=== PATIENT | male | born 1940 ===

== ENCOUNTER 2016-10-11 20:28 | Inpatient (IN) | payer MEDICARE ==
[2016-10-11 20:29] VITALS: PULSE 76; BMI 24.3
[2016-10-11 21:31] LABS: BASO # 0.1 K/uL (0.0-0.2); BASO % 0.7 % (0.0-2.0); EOS # 0.3 K/uL (0.0-0.7); EOS % 2.6 % (0.0-4.0); HEMATOCRIT 45.9 % (35.0-51.0); LYMPH # 0.6 K/uL (1.0-4.3); LYMPH % 5.6 % (20.0-40.0); MEAN CELL VOLUME 90.2 fL (80.0-94.0); MEAN CORPUSCULAR HEMOGLOBIN 29.2 pg (27.0-31.0); MEAN CORPUSCULAR HGB CONC 32.3 g/dL (33.0-37.0); MEAN PLATELET VOLUME 8.4 fL (7.2-11.7); MONO % 8.8 % (0.0-10.0); PLATELET COUNT 169 K/uL (130-400); RED CELL DISTRIBUTION WIDTH 15.7 % (11.5-14.5); WHITE BLOOD COUNT 10.9 K/uL (4.8-10.8)
[2016-10-11 21:33] LABS: RBC URINE 1 /hpf (0-3); URINE BILIRUBIN NEGATIVE (NEGATIVE); URINE BLOOD NEGATIVE (NEGATIVE); URINE COLOR Yellow (YELLOW); URINE GLUCOSE (UA) NORMAL (Normal); URINE KETONE NEGATIVE (NEGATIVE); URINE LEUKOCYTE ESTERASE NEG Leu/uL (Negative); URINE PROTEIN 2+ mg/dL (NEGATIVE); URINE UROBILINOGEN NORMAL mg/dL (0.2-1.0); WBC URINE < 1 /hpf (0-5)
[2016-10-11 21:42] LABS: ALB/GLOB RATIO 1.6 (1.0-2.1); BILIRUBIN,TOTAL 0.8 mg/dL (0.2-1.3); PHOSPHOROUS 3.4 mg/dL (2.5-4.5); TOTAL PROTEIN 7.3 g/dL (6.3-8.3)
[2016-10-11 21:43] LABS: CALCIUM 9.2 mg/dl (8.6-10.4); MAGNESIUM 2.1 mg/dL (1.6-2.3)
[2016-10-11 22:01] LABS: VENOUS BLOOD GAS BASE EXCESS -4.8 mmol/L (0.0-2.0); VENOUS BLOOD GAS PCO2 38 mmHg (40-60); VENOUS BLOOD PH 7.34 (7.32-7.43)
[2016-10-11] MEDS ORDERED: Moxifloxacin IV 400mg/250ml NS 250 ML IVPB STA (22:34)
[2016-10-11 22:41] LABS: EOSINOPHIL 4 % (0-4); NEUTROPHIL 79 % (50-75); TOTAL CELLS COUNTED 100
[2016-10-11 22:42] LABS: LARGE PLATELETS PRESENT
[2016-10-11] MEDS ORDERED: Moxifloxacin IV 400mg/250ml NS 250 ML IVPB ONE (22:43)
--- NOTE | 2016-10-11 22:48 | C.PDOC ---
History Of Present Illness Pt states he had chemotherapy at Dr. Valentin's office today. He then developed fever after returning home. Time Seen by Provider: 10/11/16 20:51 Chief Complaint (Nursing): Fever History Per: Patient Onset/Duration Of Symptoms: Hrs (since this afternoon) Current Symptoms Are (Timing): Still Present Associated Symptoms: Fever, Chills, Sore Throat, Cough, Nasal Congestion Severity: Moderate Additional History Per: Prior Records Past Medical History Reviewed: Historical Data, Nursing Documentation, Vital Signs Vital Signs: Last Vital Signs Temp 102.9 F H 10/11/16 22:27 Pulse 110 H 10/11/16 22:14 Resp 20 10/11/16 22:14 BP 197/96 H 10/11/16 22:14 Pulse Ox 95 10/11/16 22:14 - Medical History PMH: Anemia, Arthritis (Spine), Atrial Fibrillation, CAD, Cardia Arrhythmia, CHF , COPD, Gastrointestinal Ulcer, HTN, Hypercholesterolemia, Hyperlipidemia, Malignancy (Larynx and Vocal Cords), Pneumonia, Chronic Kidney Disease Surgical History: Endoscopy, Pacemaker - [facility] Procedures ANGIOPLASTY OF OTHER NON-CORONARY VESSEL(S) (02/13/14) CLOSED ENDOSCOPIC BIOPSY OF LARGE INTESTINE (09/08/14) CONTINUOUS INVASIVE MECHANICAL VENTILATION <96 CONSEC HRS (03/06/15) CONTRAST ARTERIOGRAM-LEG (02/13/14) DX ULTRASOUND-HEART (08/24/13) ENDOSC POLYPECTOMY OF LG INTEST (03/03/13) ESOPHAGOGASTRODUODENOSCOPY [EGD] W/CLOSED BIOPSY (09/08/14) EXCISION OF DESCENDING COLON, ENDO, DIAGN (04/05/15) EXCISION OF STOMACH, ENDO, DIAGN (04/05/15) FUSION/REFUS OF 4-8 VERTEBRAE (05/02/13) INFLUENZA VACCINATION (05/26/14) INSEJ [id number] PERIPHERAL NON-CORONARY VES STENT(S) (02/13/14) INSERT ENDOTRACHEAL TUBE (03/06/15) INSERTION OF FOUR OR MORE VASCULAR STENTS (02/13/14) INSERTION OF TOTALLY IMPLANTABLE VASC ACCESS DEVIC (09/29/14) INSPECTION OF UPPER INTESTINAL TRACT, ENDO (04/05/15) OCCUPATIONAL THERAPY (03/13/13) OTH CERVICAL FUSION OF POSTERIOR COLUMN, POSTERIOR TECHNIQUE (05/02/13) OTHER ENDOSCOPY OF SM INTEST (03/03/13) PACKED CELL TRANSFUSION (03/06/15) PHYSICAL THERAPY NEC (03/13/13) PROCEDURE ON SINGLE VESSEL (02/13/14) RADIOTHERAPEUT PROC NEC (03/13/13) SPINAL CANAL EXPLOR NEC (05/02/13) THERAPEUTIC ERYTHROCYTAPHERESIS (08/19/14) TRANSFUSE NONAUT RED BLOOD CELLS IN PERIPH VEIN, PERC (04/05/15) ULTRASONOGRAPHY OF RIGHT AND LEFT HEART, TRANSESOPHAGEAL (11/09/15) VACCINATION NEC (05/26/14) Family History: States: Unknown Family Hx - Social History Hx Tobacco Use: No Hx Alcohol Use: No Hx Substance Use: No - Immunization History Hx Tetanus Toxoid Vaccination: No Hx Influenza Vaccination: No Hx Pneumococcal Vaccination: No Review Of Systems Except As Marked, All Systems Reviewed And Found Negative. Constitutional: Positive for: Fever, Chills, Malaise Cardiovascular: Negative for: Chest Pain Respiratory: Positive for: Cough. Negative for: Shortness of Breath, Hemoptysis Gastrointestinal: Negative for: Vomiting, Abdominal Pain, Diarrhea Genitourinary: Negative for: Dysuria Musculoskeletal: Negative for: Neck Pain Skin: Negative for: Rash Neurological: Negative for: Weakness, Numbness, Seizures, Altered Mental Status , Headache Physical Exam - Physical Exam Appears: Chronically Ill Skin: Normal Color, Warm, Dry, No Rash Head: Atraumatic, Normacephalic Eye(s): bilateral: PERRL, EOMI Throat: Erythema, No Exudate, No Drooling Neck: Normal ROM, Supple Cardiovascular: Rhythm Regular Respiratory: No Accessory Muscle Use, Rhonchi Gastrointestinal/Abdominal: Soft, No Tenderness Back: No CVA Tenderness Extremity: Normal ROM, No Pedal Edema, No Calf Tenderness Neurological/Psych: Oriented x3, Normal Cognition, Normal Motor, Normal Sensation ED Course And Treatment - Laboratory Results Result Diagrams: 10/11/16 21:24 10/11/16 21:24 Lab Interpretation: Abnormal Interpretation Of Abnormal: Left shift. Renal insufficiency. ECG: Interpreted By Me, Viewed By Me ECG Rhythm: Atrial Fibrillation, PVC, Nonspecific Changes ECG Interpretation: Abnormal Rate From EC O2 Sat by Pulse Oximetry: 95 Pulse Ox Interpretation: Normal - Radiology CXR: Interpreted by Me, Viewed By Me CXR Interpretation: Yes: Infiltrates, Other ([place] and Pacemaker in place) Progress - Interventions Interventions:: Observation, Oxygen - Medications Administered Oral: Acetaminophen Intravenous: Other (Abx) - Data Reviewed Data Reviewed: Lab, Diagnostic imaging, EKG, Old records - Patient Status Patient status: Partially improved - Continuity of Care Discussed patient case with:: Patient, ED Nurse, PMD - Patient Plan Patient Plan: Admission Disposition Discussed With : Hebert Dorado Comment: He accepted pt on his service and gave admitting orders to the nurse. Doctor Will See Patient In The: Hospital Counseled Patient/Family Regarding: Studies Performed, Diagnosis - Disposition Disposition: HOSPITALIZED Disposition Time: 22:49 Condition: GUARDED - Clinical Impression Clinical Impression: Fever, Renal insufficiency, Pneumonia, A-fib, On antineoplastic chemotherapy
[2016-10-11] MEDS: Moxifloxacin IV 400mg/250ml NS 250 ML IVPB SCH (23:19)
[2016-10-12 00:20] LABS: VENOUS BLOOD GAS PCO2 24 mmHg (40-60)
[2016-10-12 06:52] LABS: BASO # 0.1 K/uL (0.0-0.2); BASO % 0.6 % (0.0-2.0); EOS # 0.2 K/uL (0.0-0.7); HEMATOCRIT 35.8 % (35.0-51.0); LYMPH # 0.5 K/uL (1.0-4.3); LYMPH % 5.4 % (20.0-40.0); MEAN CELL VOLUME 88.3 fL (80.0-94.0); MEAN CORPUSCULAR HEMOGLOBIN 29.5 pg (27.0-31.0); MEAN CORPUSCULAR HGB CONC 33.4 g/dL (33.0-37.0); MEAN PLATELET VOLUME 8.5 fL (7.2-11.7); MONO # 1.3 K/uL (0.0-0.8); MONO % 13.9 % (0.0-10.0); NRBC % 0.1 % (0.0-2.0); PLATELET COUNT 139 K/uL (130-400); RED CELL DISTRIBUTION WIDTH 15.4 % (11.5-14.5); WHITE BLOOD COUNT 9.6 K/uL (4.8-10.8)
[2016-10-12 07:04] LABS: POTASSIUM 4.8 mmol/L (3.6-5.2)
[2016-10-12 07:06] LABS: ALB/GLOB RATIO 1.5 (1.0-2.1); BILIRUBIN,TOTAL 0.8 mg/dL (0.2-1.3); CALCIUM 8.4 mg/dl (8.6-10.4); TOTAL PROTEIN 5.5 g/dL (6.3-8.3)
--- NOTE | 2016-10-12 08:42 | RAD ---
HISTORY: Sepsis Patient COMPARISON: 01/29/2016 FINDINGS: LUNGS: Right chest wall port with tip extending into the right SVC. Left-sided pacemaker. Mild venous congestion. Biapical pleural thickening with upper lobe granulomatous changes. Patchy bibasilar airspace opacities. Small nodular density at the right lung base. Left hilar prominence. PLEURA: As above. CARDIOVASCULAR: Left-sided pacemaker. Mild cardiomegaly. OSSEOUS STRUCTURES: No significant abnormalities. VISUALIZED UPPER ABDOMEN: Normal. OTHER FINDINGS: None. IMPRESSION: Right chest wall port with tip extending into the right SVC. Left-sided pacemaker. Mild venous congestion. Biapical pleural thickening with upper lobe granulomatous changes. Patchy bibasilar airspace opacities. Small nodular density at the right lung base. Left hilar prominence.
[2016-10-12 08:52] LABS: EOSINOPHIL 4 % (0-4); NEUTROPHIL 78 % (50-75); TOTAL CELLS COUNTED 100
[2016-10-12] MEDS: Enoxaparin 40 mg Syringe SC SCH (10:45)
[2016-10-12] MEDS: Pantoprazole 40 mg EC Tab PO SCH (10:45)
[2016-10-12] MEDS: Linezolid 600 mg in D5W 300 ml 300 ML IVPB SCH ×2 (10:51→21:16)
--- NOTE | 2016-10-12 16:57 | CP.PCM.CON ---
Past Patient History - Infectious Disease Hx of Infectious Diseases: None - Tetanus Immunizations Tetanus Immunization: Unknown - Past Medical History & Family History Past Medical History?: Yes - Past Social History Smoking Status: Former Smoker - CARDIAC Hx Atrial Fibrillation: Yes Hx Cardia Arrhythmia: Yes Hx Congestive Heart Failure: Yes Hx Hypercholesterolemia: Yes Hx Hypertension: Yes Hx Pacemaker: Yes - PULMONARY Hx Chronic Obstructive Pulmonary Disease (COPD): No Hx Pneumonia: No - NEUROLOGICAL Hx Neurological Disorder: No - HEENT Hx HEENT Problems: Yes Hx Epistaxis: Yes Other/Comment: HX VOCAL CORD tumor REMOVED MAR 2013 - RENAL Hx Chronic Kidney Disease: Yes - ENDOCRINE/METABOLIC Hx Endocrine Disorders: No - HEMATOLOGICAL/ONCOLOGICAL Hx Anemia: Yes - INTEGUMENTARY Hx Dermatological Problems: No - MUSCULOSKELETAL/RHEUMATOLOGICAL Hx Musculoskeletal Disorders: Yes Hx Arthritis: No Hx Falls: No Hx Gout: Yes - GASTROINTESTINAL Hx Gastrointestinal Disorders: Yes Hx Bowel Surgery: No Hx Constipation: No - GENITOURINARY/GYNECOLOGICAL Hx Genitourinary Disorders: No - PSYCHIATRIC Hx Substance Use: No - SURGICAL HISTORY Hx Surgeries: Yes 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 LARYNGOSCOPY REMOVAL VOCAL CORD TUMOR - ANESTHESIA Hx Anesthesia: Yes Hx Anesthesia Reactions: No Hx Malignant Hyperthermia: No Meds Allergies/Adverse Reactions: Allergies Allergy/AdvReac Type Severity Reaction Status Date / Time Penicillins Allergy RASH Verified 10/11/16 20:42 - Medications Medications: Current Medications Acetaminophen (Tylenol 325mg Tab) 975 mg PO Q4 PRN PRN Reason: Fever >100.4 F Amlodipine Besylate (Norvasc) 10 mg PO [facility]ILY [facility] Aspirin (Aspirin Chewable) 81 mg PO DAILY [facility] Carvedilol (Coreg) 6.25 mg PO BID [facility] Enoxaparin Sodium (Lovenox) 40 mg SC DAILY [facility] Last Admin: 10/12/16 10:45 Dose: 40 mg Gabapentin (Neurontin) 300 mg PO BID [facility] Hydralazine HCl (Apresoline) 50 mg PO BID [facility] Moxifloxacin HCl (Avelox Iv 400mg/250ml Ns) 250 mls @ 167 mls/hr IVPB Q24H [facility] Last Admin: 10/11/16 23:19 Dose: Not Given Linezolid (Zyvox 600mg/300ml D5w) 300 mls @ 200 mls/hr IVPB Q12 [facility] Last Admin: 10/12/16 10:51 Dose: 200 mls/hr Pantoprazole Sodium (Protonix Ec Tab) 40 mg PO DAILY [facility] Last Admin: 10/12/16 10:45 Dose: 40 mg Results - Vital Signs Recent Vital Signs: Last Vital Signs Temp 98.2 F 10/12/16 08:00 Pulse 71 10/12/16 08:00 Resp 18 10/12/16 08:00 BP 165/62 H 10/12/16 08:00 Pulse Ox 96 10/12/16 08:00 - Labs Result Diagrams: 10/12/16 06:43 10/12/16 06:43 Labs: Laboratory Results - last 24 hr 10/12/16 10/12/16 00:10 06:43 WBC 9.6 RBC 4.06 L Hgb 12.0 D Hct 35.8 MCV 88.3 MCH 29.5 MCHC 33.4 RDW 15.4 H Plt Count 139 MPV 8.5 Neut % (Auto) 78.1 H Lymph % (Auto) 5.4 L [place] % (Auto) 13.9 H Eos % (Auto) 2.0 Baso % (Auto) 0.6 Neut # 7.5 H Lymph # 0.5 L [place] # 1.3 H Eos # 0.2 Baso # 0.1 Neutrophils % (Manual) 78 H Lymphocytes % (Manual) 8 L Monocytes % (Manual) 10 Eosinophils % (Manual) 4 Platelet Estimate Normal RBC Morphology Normal pO2 49 VBG pH 7.40 VBG pCO2 24 L VBG HCO3 18.3 VBG Total CO2 15.6 L VBG O2 Sat (Calc) 92.0 H VBG Base Excess -8.0 L VBG Potassium 3.8 Sodium 141.0 139 Chloride 123.0 H 110 H Glucose 59 L Lactate 1.6 Potassium 4.8 Carbon Dioxide 18 L Anion Gap 16 BUN 38 H Creatinine 2.3 H Est GFR ( Amer) 34 Est GFR (Non-Af Amer) 28 Random Glucose 72 L Calcium 8.4 L Total Bilirubin 0.8 AST 25 ALT 19 L Alkaline Phosphatase 91 Total Protein 5.5 L Albumin 3.3 L D Globulin 2.2 Albumin/Globulin Ratio 1.5 Venous Blood Potassium 3.8
[2016-10-12 17:16] VITALS: RESP 20
--- NOTE | 2016-10-12 18:58 | CP.PCM.HP ---
History of Present Illness - History of Present Illness History of Present Illness: 76-year-old male patient with the past medical history of atrial fibrillation, CAD, cardiac arrhythmia, CHF, COPD, gastrointestinal ulcer, hypertension, hypercholesterolemia, hyperlipidemia, malignancy(larynx and vocal cord), pneumonia, chronic kidney disease presented to the ER after developing a fever. Patient had chemotherapy at Dr. Valentin's office today. Patient then developed fever after returning home. Present on Admission - Present on Admission Any Indicators Present on Admission: No Past Patient History - Infectious Disease Hx of Infectious Diseases: None - Tetanus Immunizations Tetanus Immunization: Unknown - Past Medical History & Family History Past Medical History?: Yes - Past Social History Smoking Status: Former Smoker - CARDIAC Hx Atrial Fibrillation: Yes Hx Cardia Arrhythmia: Yes Hx Congestive Heart Failure: Yes Hx Hypercholesterolemia: Yes Hx Hypertension: Yes Hx Pacemaker: Yes - PULMONARY Hx Chronic Obstructive Pulmonary Disease (COPD): No Hx Pneumonia: No - NEUROLOGICAL Hx Neurological Disorder: No - HEENT Hx HEENT Problems: Yes Hx Epistaxis: Yes Other/Comment: HX VOCAL CORD tumor REMOVED MAR 2013 - RENAL Hx Chronic Kidney Disease: Yes - ENDOCRINE/METABOLIC Hx Endocrine Disorders: No - HEMATOLOGICAL/ONCOLOGICAL Hx Anemia: Yes - INTEGUMENTARY Hx Dermatological Problems: No - MUSCULOSKELETAL/RHEUMATOLOGICAL Hx Musculoskeletal Disorders: Yes Hx Arthritis: No Hx Falls: No Hx Gout: Yes - GASTROINTESTINAL Hx Gastrointestinal Disorders: Yes Hx Bowel Surgery: No Hx Constipation: No - GENITOURINARY/GYNECOLOGICAL Hx Genitourinary Disorders: No - PSYCHIATRIC Hx Substance Use: No - SURGICAL HISTORY Hx Surgeries: Yes 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 LARYNGOSCOPY REMOVAL VOCAL CORD TUMOR - ANESTHESIA Hx Anesthesia: Yes Hx Anesthesia Reactions: No Hx Malignant Hyperthermia: No Meds Home Medications: Home Medication List Medication Instructions Recorded Confirmed Type Moxifloxacin [Avelox] 400 mg PO DAILY #5 tab 10/14/16 Rx Allergies/Adverse Reactions: Allergies Allergy/AdvReac Type Severity Reaction Status Date / Time Penicillins Allergy RASH Verified 10/11/16 20:42 Physical Exam - Constitutional Appears: Well - Head Exam Head Exam: ATRAUMATIC, NORMAL INSPECTION, NORMOCEPHALIC - Eye Exam Eye Exam: EOMI, Normal appearance, PERRL Pupil Exam: NORMAL ACCOMODATION, PERRL - ENT Exam ENT Exam: Mucous Membranes Moist, Normal Exam - Neck Exam Neck exam: Positive for: Normal Inspection - Respiratory Exam Respiratory Exam: Decreased Breath Sounds - Cardiovascular Exam Cardiovascular Exam: REGULAR RHYTHM, +S1, +S2 - GI/Abdominal Exam GI & Abdominal Exam: Diminished Bowel Sounds, Soft - Rectal Exam Rectal Exam: Deferred Results - Vital Signs Recent Vital Signs: Last Vital Signs Temp 98.0 F 10/12/16 17:15 Pulse 81 10/12/16 17:15 Resp 20 10/12/16 17:15 BP 167/67 H 10/12/16 17:15 Pulse Ox 95 10/12/16 17:15 - Labs Result Diagrams: 10/14/16 06:21 10/14/16 06:21 Labs: Laboratory Results - last 24 hr 10/12/16 10/12/16 00:10 06:43 WBC 9.6 RBC 4.06 L Hgb 12.0 D Hct 35.8 MCV 88.3 MCH 29.5 MCHC 33.4 RDW 15.4 H Plt Count 139 MPV 8.5 Neut % (Auto) 78.1 H Lymph % (Auto) 5.4 L [place] % (Auto) 13.9 H Eos % (Auto) 2.0 Baso % (Auto) 0.6 Neut # 7.5 H Lymph # 0.5 L [place] # 1.3 H Eos # 0.2 Baso # 0.1 Neutrophils % (Manual) 78 H Lymphocytes % (Manual) 8 L Monocytes % (Manual) 10 Eosinophils % (Manual) 4 Platelet Estimate Normal RBC Morphology Normal pO2 49 VBG pH 7.40 VBG pCO2 24 L VBG HCO3 18.3 VBG Total CO2 15.6 L VBG O2 Sat (Calc) 92.0 H VBG Base Excess -8.0 L VBG Potassium 3.8 Sodium 141.0 139 Chloride 123.0 H 110 H Glucose 59 L Lactate 1.6 Potassium 4.8 Carbon Dioxide 18 L Anion Gap 16 BUN 38 H Creatinine 2.3 H Est GFR ( Amer) 34 Est GFR (Non-Af Amer) 28 Random Glucose 72 L Calcium 8.4 L Total Bilirubin 0.8 AST 25 ALT 19 L Alkaline Phosphatase 91 Total Protein 5.5 L Albumin 3.3 L D Globulin 2.2 Albumin/Globulin Ratio 1.5 Venous Blood Potassium 3.8 Assessment & Plan (1) A-fib Status: Acute (2) Abdominal pain Status: Acute (3) Abnormal EKG Status: Acute (4) Abnormal liver enzymes Status: Acute (5) Anemia Status: Acute (6) Aortic stenosis, moderate Status: Acute (7) Arthritis Status: Acute (8) 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 Status: Acute (9) Atherosclerotic PVD with ulceration Status: Acute Priority: Medium (10) Chest pain Status: Acute (11) Chronic congestive heart failure Status: Acute (12) Critical stenosis of aortic valve Status: Acute (13) Decubitus ulcer with gangrene Status: Acute (14) Defibrillator discharge Status: Acute (15) Dyspnea Status: Acute (16) Dyspnea on exertion Status: Acute (17) ESBL (extended spectrum beta-lactamase) producing bacteria infection Status: Acute (18) Elevated troponin Status: Acute (19) Elevated troponin I level Status: Acute (20) Epigastric pain Status: Acute (21) Fever Status: Acute (22) Flash pulmonary edema Status: Acute (23) GI bleeding Status: Acute (24) Gangrene Status: Acute (25) History of bowel resection Status: Acute (26) Hypernatremia Status: Acute (27) Hypocalcemia Status: Acute (28) Hypokalemia Status: Acute (29) Irregular cardiac rhythm Status: Acute (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 (31) On antineoplastic chemotherapy Status: Acute (32) Paraplegia Status: Acute (33) Pneumonia Status: Acute (34) Prophylactic measure Status: Acute (35) Proteus mirabilis pneumonia Status: Acute (36) Rapid atrial fibrillation Status: Acute (37) Renal insufficiency Status: Acute (38) Respiratory failure Status: Acute (39) Sciatica Status: Acute (40) Severe anemia Status: Acute (41) Sprain Status: Acute (42) UTI (urinary tract infection) Status: Acute (43) Waldenstroms macroglobulinemia Status: Acute (44) Weakness Status: Acute (45) Aortic stenosis Status: Chronic Priority: Low (46) CAD (coronary artery disease) Status: Chronic (47) COPD (chronic obstructive pulmonary disease) with emphysema Status: Chronic (48) Chronic kidney disease (CKD) Status: Chronic (49) Constipation Status: Chronic (50) HTN (hypertension) Status: Chronic (51) Hypercholesteremia Status: Chronic (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
--- NOTE | 2016-10-12 21:32 | CP.PCM.CON ---
History of Present Illness - History of Present Illness History of Present Illness: dictated Past Patient History - Infectious Disease Hx of Infectious Diseases: None - Tetanus Immunizations Tetanus Immunization: Unknown - Past Medical History & Family History Past Medical History?: Yes - Past Social History Smoking Status: Former Smoker - CARDIAC Hx Atrial Fibrillation: Yes Hx Cardia Arrhythmia: Yes Hx Congestive Heart Failure: Yes Hx Hypercholesterolemia: Yes Hx Hypertension: Yes Hx Pacemaker: Yes - PULMONARY Hx Chronic Obstructive Pulmonary Disease (COPD): No Hx Pneumonia: No - NEUROLOGICAL Hx Neurological Disorder: No - HEENT Hx HEENT Problems: Yes Hx Epistaxis: Yes Other/Comment: HX VOCAL CORD tumor REMOVED MAR 2013 - RENAL Hx Chronic Kidney Disease: Yes - ENDOCRINE/METABOLIC Hx Endocrine Disorders: No - HEMATOLOGICAL/ONCOLOGICAL Hx Anemia: Yes - INTEGUMENTARY Hx Dermatological Problems: No - MUSCULOSKELETAL/RHEUMATOLOGICAL Hx Musculoskeletal Disorders: Yes Hx Arthritis: No Hx Falls: No Hx Gout: Yes - GASTROINTESTINAL Hx Gastrointestinal Disorders: Yes Hx Bowel Surgery: No Hx Constipation: No - GENITOURINARY/GYNECOLOGICAL Hx Genitourinary Disorders: No - PSYCHIATRIC Hx Substance Use: No - SURGICAL HISTORY Hx Surgeries: Yes 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 LARYNGOSCOPY REMOVAL VOCAL CORD TUMOR - ANESTHESIA Hx Anesthesia: Yes Hx Anesthesia Reactions: No Hx Malignant Hyperthermia: No Meds Allergies/Adverse Reactions: Allergies Allergy/AdvReac Type Severity Reaction Status Date / Time Penicillins Allergy RASH Verified 10/11/16 20:42 - Medications Medications: Current Medications Acetaminophen (Tylenol 325mg Tab) 975 mg PO Q4 PRN PRN Reason: Fever >100.4 F Amlodipine Besylate (Norvasc) 10 mg PO DAILY [facility] Aspirin (Aspirin Chewable) 81 mg PO DAILY [facility] Carvedilol (Coreg) 6.25 mg PO BID [facility] Last Admin: 10/12/16 17:52 Dose: 6.25 mg Enoxaparin Sodium (Lovenox) 40 mg SC DAILY [facility] Last Admin: 10/12/16 10:45 Dose: 40 mg Gabapentin (Neurontin) 300 mg PO BID [facility] Last Admin: 10/12/16 17:52 Dose: 300 mg Hydralazine HCl (Apresoline) 50 mg PO BID [facility] Last Admin: 10/12/16 17:52 Dose: 50 mg Moxifloxacin HCl (Avelox Iv 400mg/250ml Ns) 250 mls @ 167 mls/hr IVPB Q24H [facility] Last Admin: 10/11/16 23:19 Dose: Not Given Linezolid (Zyvox 600mg/300ml D5w) 300 mls @ 200 mls/hr IVPB Q12 [facility] Last Admin: 10/12/16 21:16 Dose: 200 mls/hr Pantoprazole Sodium (Protonix Ec Tab) 40 mg PO DAILY [facility] Last Admin: 10/12/16 10:45 Dose: 40 mg Results - Vital Signs Recent Vital Signs: Last Vital Signs Temp 98.0 F 10/12/16 17:15 Pulse 81 10/12/16 17:15 Resp 20 10/12/16 17:15 BP 167/67 H 10/12/16 17:15 Pulse Ox 95 10/12/16 17:15 - Labs Result Diagrams: 10/12/16 06:43 10/12/16 06:43 Labs: Laboratory Results - last 24 hr 10/12/16 10/12/16 00:10 06:43 WBC 9.6 RBC 4.06 L Hgb 12.0 D Hct 35.8 MCV 88.3 MCH 29.5 MCHC 33.4 RDW 15.4 H Plt Count 139 MPV 8.5 Neut % (Auto) 78.1 H Lymph % (Auto) 5.4 L [place] % (Auto) 13.9 H Eos % (Auto) 2.0 Baso % (Auto) 0.6 Neut # 7.5 H Lymph # 0.5 L [place] # 1.3 H Eos # 0.2 Baso # 0.1 Neutrophils % (Manual) 78 H Lymphocytes % (Manual) 8 L Monocytes % (Manual) 10 Eosinophils % (Manual) 4 Platelet Estimate Normal RBC Morphology Normal pO2 49 VBG pH 7.40 VBG pCO2 24 L VBG HCO3 18.3 VBG Total CO2 15.6 L VBG O2 Sat (Calc) 92.0 H VBG Base Excess -8.0 L VBG Potassium 3.8 Sodium 141.0 139 Chloride 123.0 H 110 H Glucose 59 L Lactate 1.6 Potassium 4.8 Carbon Dioxide 18 L Anion Gap 16 BUN 38 H Creatinine 2.3 H Est GFR ( Amer) 34 Est GFR (Non-Af Amer) 28 Random Glucose 72 L Calcium 8.4 L Total Bilirubin 0.8 AST 25 ALT 19 L Alkaline Phosphatase 91 Total Protein 5.5 L Albumin 3.3 L D Globulin 2.2 Albumin/Globulin Ratio 1.5 Venous Blood Potassium 3.8 Assessment & Plan (1) Fever Status: Acute
--- NOTE | 2016-10-12 23:08 | CP.PCM.CON ---
History of Present Illness - History of Present Illness History of Present Illness: Patient seen and evaluated Denies chest pain and dyspnea Hx of Cardiomyopathy s/p AICD s/p TAVR Past Patient History - Infectious Disease Hx of Infectious Diseases: None - Tetanus Immunizations Tetanus Immunization: Unknown - Past Medical History & Family History Past Medical History?: Yes - Past Social History Smoking Status: Former Smoker - CARDIAC Hx Atrial Fibrillation: Yes Hx Cardia Arrhythmia: Yes Hx Congestive Heart Failure: Yes Hx Hypercholesterolemia: Yes Hx Hypertension: Yes Hx Pacemaker: Yes - PULMONARY Hx Chronic Obstructive Pulmonary Disease (COPD): No Hx Pneumonia: No - NEUROLOGICAL Hx Neurological Disorder: No - HEENT Hx HEENT Problems: Yes Hx Epistaxis: Yes Other/Comment: HX VOCAL CORD tumor REMOVED MAR 2013 - RENAL Hx Chronic Kidney Disease: Yes - ENDOCRINE/METABOLIC Hx Endocrine Disorders: No - HEMATOLOGICAL/ONCOLOGICAL Hx Anemia: Yes - INTEGUMENTARY Hx Dermatological Problems: No - MUSCULOSKELETAL/RHEUMATOLOGICAL Hx Musculoskeletal Disorders: Yes Hx Arthritis: No Hx Falls: No Hx Gout: Yes - GASTROINTESTINAL Hx Gastrointestinal Disorders: Yes Hx Bowel Surgery: No Hx Constipation: No - GENITOURINARY/GYNECOLOGICAL Hx Genitourinary Disorders: No - PSYCHIATRIC Hx Substance Use: No - SURGICAL HISTORY Hx Surgeries: Yes 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 LARYNGOSCOPY REMOVAL VOCAL CORD TUMOR - ANESTHESIA Hx Anesthesia: Yes Hx Anesthesia Reactions: No Hx Malignant Hyperthermia: No Meds Allergies/Adverse Reactions: Allergies Allergy/AdvReac Type Severity Reaction Status Date / Time Penicillins Allergy RASH Verified 10/11/16 20:42 - Medications Medications: Current Medications Acetaminophen (Tylenol 325mg Tab) 975 mg PO Q4 PRN PRN Reason: Fever >100.4 F Amlodipine Besylate (Norvasc) 10 mg PO DAILY [facility] Aspirin (Aspirin Chewable) 81 mg PO DAILY [facility] Carvedilol (Coreg) 6.25 mg PO BID [facility] Last Admin: 10/12/16 17:52 Dose: 6.25 mg Enoxaparin Sodium (Lovenox) 40 mg SC DAILY [facility] Last Admin: 10/12/16 10:45 Dose: 40 mg Gabapentin (Neurontin) 300 mg PO BID [facility] Last Admin: 10/12/16 17:52 Dose: 300 mg Hydralazine HCl (Apresoline) 50 mg PO BID [facility] Last Admin: 10/12/16 17:52 Dose: 50 mg Moxifloxacin HCl (Avelox Iv 400mg/250ml Ns) 250 mls @ 167 mls/hr IVPB Q24H [facility] Last Admin: 10/11/16 23:19 Dose: Not Given Linezolid (Zyvox 600mg/300ml D5w) 300 mls @ 200 mls/hr IVPB Q12 [facility] Last Admin: 10/12/16 21:16 Dose: 200 mls/hr Pantoprazole Sodium (Protonix Ec Tab) 40 mg PO DAILY [facility] Last Admin: 10/12/16 10:45 Dose: 40 mg Temazepam (Restoril) 15 mg PO HS PRN PRN Reason: insomnia Results - Vital Signs Recent Vital Signs: Last Vital Signs Temp 98.0 F 10/12/16 17:15 Pulse 81 10/12/16 17:15 Resp 20 10/12/16 17:15 BP 167/67 H 10/12/16 17:15 Pulse Ox 95 10/12/16 17:15 - Labs Result Diagrams: 10/12/16 06:43 10/12/16 06:43 Labs: Laboratory Results - last 24 hr 10/12/16 10/12/16 00:10 06:43 WBC 9.6 RBC 4.06 L Hgb 12.0 D Hct 35.8 MCV 88.3 MCH 29.5 MCHC 33.4 RDW 15.4 H Plt Count 139 MPV 8.5 Neut % (Auto) 78.1 H Lymph % (Auto) 5.4 L [place] % (Auto) 13.9 H Eos % (Auto) 2.0 Baso % (Auto) 0.6 Neut # 7.5 H Lymph # 0.5 L [place] # 1.3 H Eos # 0.2 Baso # 0.1 Neutrophils % (Manual) 78 H Lymphocytes % (Manual) 8 L Monocytes % (Manual) 10 Eosinophils % (Manual) 4 Platelet Estimate Normal RBC Morphology Normal pO2 49 VBG pH 7.40 VBG pCO2 24 L VBG HCO3 18.3 VBG Total CO2 15.6 L VBG O2 Sat (Calc) 92.0 H VBG Base Excess -8.0 L VBG Potassium 3.8 Sodium 141.0 139 Chloride 123.0 H 110 H Glucose 59 L Lactate 1.6 Potassium 4.8 Carbon Dioxide 18 L Anion Gap 16 BUN 38 H Creatinine 2.3 H Est GFR ( Amer) 34 Est GFR (Non-Af Amer) 28 Random Glucose 72 L Calcium 8.4 L Total Bilirubin 0.8 AST 25 ALT 19 L Alkaline Phosphatase 91 Total Protein 5.5 L Albumin 3.3 L D Globulin 2.2 Albumin/Globulin Ratio 1.5 Venous Blood Potassium 3.8
--- NOTE | 2016-10-12 23:33 | CON ---
DATE: 10/12/2016 REQUESTING PHYSICIAN: Dr. Dorothea Dorado. HISTORY OF PRESENT ILLNESS: This patient is a 75-year-old male. 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 He has been going there for the last 2 years. He said he had a bone marrow before and he has been treating it and he was supposed to go today also but he developed fever after coming home. He says he was fine when he went there. He also has a Port-A-Cath through which he get s chemotherapy. He got chemotherapy around 11:00 and came out of the office around 12:00, went home and in the afternoon he started to have fever with chills, also had sore throat, cough and started to become congested and felt really bad and he has not felt like this after a long time he has been get ting chemo. He also says that 2 years back he got radiation and after radiation he had some problem with his neck and underwent neurosurgical surgery in his neck because he was having numbness in his a lisette and feet and probably he underwent decompression of his nerves in the cervical area. He came in with fever, chills, sore throat, cough, nasal congestion. He was started on IV antibiotics and he fe els slightly better today. He says he has had no fevers before. He does feel tired, but he is not h aving any joint pains. He does have a Port-A-Cath. PAST MEDICAL HISTORY: Is significant for anemia. He has spine arthritis, atrial fibrillation, barbosa ry artery disease, CHF, COPD, hypertension, hypercholesterolemia. 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 He also has chronic kidney disease. PAST SURGICAL HISTORY: Endoscopy and pacemaker. He has had a lot of procedures in the hospital here , but not recently. The last was he had a JOSE done in 10/2015. FAMILY HISTORY: Noncontributory. SOCIAL HISTORY: He does not smoke, drink, no drug abuse. REVIEW OF SYSTEMS: He did come in with fever, chills and malaise. Denies any chest pain. He has so me cough. Denies any shortness of breath. No phlegm, no hemoptysis. He denies any nausea, vomiting , or diarrhea. He denies any urinary symptoms of urgency or frequency. He denies any neck pain. He has no skin rash. He denied any weakness, numbness, headaches or syncope. MEDICATIONS: We had started him on Tylenol. He is on Coreg. He is on Lovenox, Neurontin and alpraz olam. He on Zyvox and moxifloxacin as he is ALLERGIC TO PENICILLIN and he is on Protonix and getting Tylenol. On admission, his temperature was 102.9, pulse was 110, respirations 20, blood pressure was 197/96 an d that was high and he was admitted with the fever, pneumonia, renal insufficiency, atrial fibrillati on and he had fevers post antineoplastic chemotherapy. PHYSICAL EXAMINATION: VITAL SIGNS: I find today his temperature is 98, pulse is 81, blood pressure is 165/62, respirations are 18. GENERAL: He is alert, oriented x 3. He is able to give a history. HEENT: Head is atraumatic, normocephalic. Pupils have no icterus. No pallor. Tongue is moist. NECK: Supple. JVP is flat. No lymphadenopathy present. The cervical area has a surgical scar. LUNGS: Clear. No crackles or rales heard. HEART: S1, S2 is irregularly irregular. He has a pacemaker. ABDOMEN: Soft, nontender, no guarding, no rigidity present. EXTREMITIES: Have no edema, clubbing or cyanosis. LABORATORY DATA: Are noted. White count yesterday was 10.9, today it is 9.6, hemoglobin is 12, tara tocrit 35.8, platelet count is 139, it was 169 before and neutrophils are . ABG was done today, which was 7.40, CO2 was 24, bicarbonate was 18.3, saturation 92. Sodium is 139, potassium 4.8, chlo ride 110, CO2 of 18, anion gap is 16, BUN is 38, creatinine is 2.3. UA showed 2+ proteins. A flu sw ab was negative. The chest x-ray showed right chest wall Port-A-Cath, left-sided pacemaker, mild isiah ous congestion, biapical pleural thickening with upper lobe granulomatous changes, airspace opa cities, small nodular density at the right lung base, left hilar prominence. At this time, he did have some respiratory symptoms, so he is started on these medications. Will fol low. A septic workup. Pulmonary is also following him and will follow with them. The patient is sl ightly improved on clinical treatment. Will follow. He came in with fever, status post chemotherap y with sepsis and pneumonia. He has vocal cord malignancy. He has atrial fib and he has a pacemaker . He has chronic renal insufficiency. Galileo Paulino MD cc: [id number] TT: 10/12/2016 23:32:18 Confirmation # [id number] Dictation # [id number]
[2016-10-12] MEDS: Moxifloxacin IV 400mg/250ml NS 250 ML IVPB SCH (23:55)
[2016-10-13 00:57] LABS: POTASSIUM 4.7 mmol/L (3.6-5.2)
[2016-10-13 00:59] LABS: ALB/GLOB RATIO 1.6 (1.0-2.1); BILIRUBIN,TOTAL 0.5 mg/dL (0.2-1.3); TOTAL PROTEIN 5.8 g/dL (6.3-8.3)
[2016-10-13 01:00] LABS: CALCIUM 7.9 mg/dl (8.6-10.4)
[2016-10-13 08:44] LABS: BASO % 0.4 % (0.0-2.0); EOS # 0.8 K/uL (0.0-0.7); EOS % 11.3 % (0.0-4.0); HEMATOCRIT 40.2 % (35.0-51.0); LYMPH # 0.7 K/uL (1.0-4.3); LYMPH % 9.9 % (20.0-40.0); MEAN CORPUSCULAR HEMOGLOBIN 28.4 pg (27.0-31.0); MEAN CORPUSCULAR HGB CONC 31.9 g/dL (33.0-37.0); MEAN PLATELET VOLUME 8.6 fL (7.2-11.7); MONO # 1.5 K/uL (0.0-0.8); MONO % 21.8 % (0.0-10.0); NRBC % 0.3 % (0.0-2.0); PLATELET COUNT 156 K/uL (130-400); RED CELL DISTRIBUTION WIDTH 15.2 % (11.5-14.5); WHITE BLOOD COUNT 6.7 K/uL (4.8-10.8)
[2016-10-13 08:54] LABS: POTASSIUM 5.3 mmol/L (3.6-5.2)
[2016-10-13 08:57] LABS: ALB/GLOB RATIO 1.8 (1.0-2.1); BILIRUBIN,TOTAL 0.8 mg/dL (0.2-1.3)
[2016-10-13 08:58] LABS: CALCIUM 8.5 mg/dl (8.6-10.4)
[2016-10-13] MEDS: Enoxaparin 40 mg Syringe SC SCH (09:22)
[2016-10-13] MEDS: Linezolid 600 mg in D5W 300 ml 300 ML IVPB SCH ×2 (09:23→21:05)
[2016-10-13] MEDS: Pantoprazole 40 mg EC Tab PO SCH (09:23)
[2016-10-13 09:39] LABS: EOSINOPHIL 12 % (0-4); NEUTROPHIL 63 % (50-75); TOTAL CELLS COUNTED 100
--- NOTE | 2016-10-13 17:13 | CP.PCM.PN ---
Subjective - Date & Time of Evaluation Date of Evaluation: 10/13/16 Time of Evaluation: 13:20 - Subjective Subjective: clinically same Objective - Vital Signs/Intake and Output Vital Signs (last 24 hours): Temp Pulse Resp BP Pulse Ox 97.4 F L 63 20 152/80 H 95 10/13/16 16:04 10/13/16 16:04 10/13/16 16:04 10/13/16 16:04 10/13/16 16:04 Intake and Output: 10/13/16 10/13/16 06:59 18:59 Intake Total 490 800 Output Total 550 Balance -60 800 - Medications Medications: Current Medications Acetaminophen (Tylenol 325mg Tab) 975 mg PO Q4 PRN PRN Reason: Fever >100.4 F Amlodipine Besylate (Norvasc) 10 mg PO DAILY [facility] Last Admin: 10/13/16 09:23 Dose: 10 mg Aspirin (Aspirin Chewable) 81 mg PO DAILY [facility] Last Admin: 10/13/16 09:23 Dose: 81 mg Carvedilol (Coreg) 6.25 mg PO BID [facility] Last Admin: 10/13/16 09:23 Dose: 6.25 mg Enoxaparin Sodium (Lovenox) 40 mg SC DAILY [facility] Last Admin: 10/13/16 09:22 Dose: 40 mg Gabapentin (Neurontin) 300 mg PO BID [facility] Last Admin: 10/13/16 09:23 Dose: 300 mg Hydralazine HCl (Apresoline) 50 mg PO BID [facility] Last Admin: 10/13/16 09:23 Dose: 50 mg Moxifloxacin HCl (Avelox Iv 400mg/250ml Ns) 250 mls @ 167 mls/hr IVPB Q24H [facility] Last Admin: 10/12/16 23:55 Dose: 167 mls/hr Linezolid (Zyvox 600mg/300ml D5w) 300 mls @ 200 mls/hr IVPB Q12 [facility] Last Admin: 10/13/16 09:23 Dose: 200 mls/hr Pantoprazole Sodium (Protonix Ec Tab) 40 mg PO DAILY [facility] Last Admin: 10/13/16 09:23 Dose: 40 mg Temazepam (Restoril) 15 mg PO HS PRN PRN Reason: insomnia Last Admin: 10/12/16 23:52 Dose: 15 mg - Labs Labs: 10/13/16 08:33 04/20/17 08:33 - Constitutional Appears: Well - Head Exam Head Exam: ATRAUMATIC, NORMAL INSPECTION, NORMOCEPHALIC - Eye Exam Eye Exam: EOMI, Normal appearance, PERRL Pupil Exam: NORMAL ACCOMODATION, PERRL - ENT Exam ENT Exam: Mucous Membranes Moist, Normal Exam - Neck Exam Neck Exam: Full ROM, Normal Inspection. 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 Status: Acute (9) Atherosclerotic PVD with ulceration Status: Acute (10) Chest pain Status: Acute (11) Chronic congestive heart failure Status: Acute (12) Critical stenosis of aortic valve Status: Acute (13) Decubitus ulcer with gangrene Status: Acute (14) Defibrillator discharge Status: Acute (15) Dyspnea Status: Acute (16) Dyspnea on exertion Status: Acute (17) ESBL (extended spectrum beta-lactamase) producing bacteria infection Status: Acute (18) Elevated troponin Status: Acute (19) Elevated troponin I level Status: Acute (20) Epigastric pain Status: Acute (21) Fever Status: Acute (22) Flash pulmonary edema Status: Acute (23) GI bleeding Status: Acute (24) Gangrene Status: Acute (25) History of bowel resection Status: Acute (26) Hypernatremia Status: Acute (27) Hypocalcemia Status: Acute (28) Hypokalemia Status: Acute (29) Irregular cardiac rhythm Status: Acute (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 (31) On antineoplastic chemotherapy Status: Acute (32) Paraplegia Status: Acute (33) Pneumonia Status: Acute (34) Prophylactic measure Status: Acute (35) Proteus mirabilis pneumonia Status: Acute (36) Rapid atrial fibrillation Status: Acute (37) Renal insufficiency Status: Acute (38) Respiratory failure Status: Acute (39) Sciatica Status: Acute (40) Severe anemia Status: Acute (41) Sprain Status: Acute (42) UTI (urinary tract infection) Status: Acute (43) Waldenstroms macroglobulinemia Status: Acute (44) Weakness Status: Acute (45) Aortic stenosis Status: Chronic (46) CAD (coronary artery disease) Status: Chronic (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 Lucas Blanco Continue antibiotics Lovenox Aspirin Coreg Protonix
--- NOTE | 2016-10-13 18:01 | CP.PCM.PN ---
Subjective - Date & Time of Evaluation Date of Evaluation: 10/13/16 Time of Evaluation: 01:00 - Subjective Subjective: dictated Objective - Vital Signs/Intake and Output Vital Signs (last 24 hours): Temp Pulse Resp BP Pulse Ox 97.4 F L 63 20 152/80 H 95 10/13/16 16:04 10/13/16 16:04 10/13/16 16:04 10/13/16 16:04 10/13/16 16:04 Intake and Output: 10/13/16 10/13/16 06:59 18:59 Intake Total 490 800 Output Total 550 Balance -60 800 - Medications Medications: Current Medications Acetaminophen (Tylenol 325mg Tab) 975 mg PO Q4 PRN PRN Reason: Fever >100.4 F Amlodipine Besylate (Norvasc) 10 mg PO DAILY [facility] Last Admin: 10/13/16 09:23 Dose: 10 mg Aspirin (Aspirin Chewable) 81 mg PO DAILY [facility] Last Admin: 10/13/16 09:23 Dose: 81 mg Carvedilol (Coreg) 6.25 mg PO BID [facility] Last Admin: 10/13/16 17:35 Dose: 6.25 mg Enoxaparin Sodium (Lovenox) 40 mg SC DAILY [facility] Last Admin: 10/13/16 09:22 Dose: 40 mg Gabapentin (Neurontin) 300 mg PO BID [facility] Last Admin: 10/13/16 17:37 Dose: 300 mg Hydralazine HCl (Apresoline) 50 mg PO BID [facility] Last Admin: 10/13/16 17:35 Dose: 50 mg Moxifloxacin HCl (Avelox Iv 400mg/250ml Ns) 250 mls @ 167 mls/hr IVPB Q24H [facility] Last Admin: 10/12/16 23:55 Dose: 167 mls/hr Linezolid (Zyvox 600mg/300ml D5w) 300 mls @ 200 mls/hr IVPB Q12 [facility] Last Admin: 10/13/16 09:23 Dose: 200 mls/hr Pantoprazole Sodium (Protonix Ec Tab) 40 mg PO DAILY [facility] Last Admin: 10/13/16 09:23 Dose: 40 mg Temazepam (Restoril) 15 mg PO HS PRN PRN Reason: insomnia Last Admin: 10/12/16 23:52 Dose: 15 mg - Labs Labs: 10/13/16 08:33 10/13/16 08:33 Assessment and Plan (1) Fever Status: Acute
--- NOTE | 2016-10-13 18:13 | CP.PCM.PN ---
Subjective - Date & Time of Evaluation Date of Evaluation: 10/13/16 Objective - Vital Signs/Intake and Output Vital Signs (last 24 hours): Temp Pulse Resp BP Pulse Ox 97.4 F L 63 20 152/80 H 95 10/13/16 16:04 10/13/16 16:04 10/13/16 16:04 10/13/16 16:04 10/13/16 16:04 Intake and Output: 10/13/16 10/13/16 06:59 18:59 Intake Total 490 800 Output Total 550 Balance -60 800 - Medications Medications: Current Medications Acetaminophen (Tylenol 325mg Tab) 975 mg PO Q4 PRN PRN Reason: Fever >100.4 F Amlodipine Besylate (Norvasc) 10 mg PO DAILY [facility] Last Admin: 10/13/16 09:23 Dose: 10 mg Aspirin (Aspirin Chewable) 81 mg PO DAILY [facility] Last Admin: 10/13/16 09:23 Dose: 81 mg Carvedilol (Coreg) 6.25 mg PO BID [facility] Last Admin: 10/13/16 17:35 Dose: 6.25 mg Enoxaparin Sodium (Lovenox) 40 mg SC DAILY [facility] Last Admin: 10/13/16 09:22 Dose: 40 mg Gabapentin (Neurontin) 300 mg PO BID [facility] Last Admin: 10/13/16 17:37 Dose: 300 mg Hydralazine HCl (Apresoline) 50 mg PO BID [facility] Last Admin: 10/13/16 17:35 Dose: 50 mg Moxifloxacin HCl (Avelox Iv 400mg/250ml Ns) 250 mls @ 167 mls/hr IVPB Q24H [facility] Last Admin: 10/12/16 23:55 Dose: 167 mls/hr Linezolid (Zyvox 600mg/300ml D5w) 300 mls @ 200 mls/hr IVPB Q12 [facility] Last Admin: 10/13/16 09:23 Dose: 200 mls/hr Pantoprazole Sodium (Protonix Ec Tab) 40 mg PO DAILY [facility] Last Admin: 10/13/16 09:23 Dose: 40 mg Temazepam (Restoril) 15 mg PO HS PRN PRN Reason: insomnia Last Admin: 10/12/16 23:52 Dose: 15 mg - Labs Labs: 10/13/16 08:33 10/13/16 08:33
--- NOTE | 2016-10-13 18:32 | PN ---
DATE: 10/13/2016 The patient said he was feeling a lot better and he was able to communicate. He was still feeling ti red, but he wanted to go home tomorrow. PHYSICAL EXAMINATION: VITAL SIGNS: T-max is 97.4, pulse is 63, blood pressure 152/80, respirations are 20. HEENT: Head is atraumatic, normocephalic. NECK: Supple. LUNGS: Clear. No crackles or rales present. HEART: S1, S2 is regular. ABDOMEN: Soft, nontender, no guarding, no rigidity present. EXTREMITIES: Have no edema, clubbing or cyanosis. LABORATORIES: Noted, show white count is 6.7, hemoglobin 12.8, hematocrit 40.2, platelet count is 15 6 and shows neutrophils are 63, bands are 1, eosinophils are 12, so I do not know if he had some alberto rgy to the . Sodium is 140, potassium 5.3, chloride 111, anion gap is 17, BUN is 40, and creati nine is 2.4. He does have chronic kidney disease. His blood cultures are negative 24 hours and urin e culture is negative 24 hours. His chest x-ray was done yesterday, on , which showed right wall Port-A-Cath, mild venous congestion, biapical thickening, upper lobe granulomatous changes, patchy b ibasilar airspace opacities, small nodular density at the right lung base, left perihilar prominence. So at this time, patient is on Zyvox and Avelox and I think pulmonary, Dr. Blanco, is on the case and we will see if he agrees with me. We could send him on Avelox for another 5 days. We will follo w and we will discuss the plan with the primary. His potassium is 5.3 today. We will repeat it joel rrow and otherwise the labs remain unremarkable. He came with a fever, status post chemo and may hav e pneumonia and he does have some eosinophilia, but he is afebrile while here on antibiotics and he a lso has a Port-A-Cath at this time. Galileo Paulino MD cc: [id number] TT: 10/13/2016 18:31:43 Confirmation # [id number] Dictation # [id number]
[2016-10-13] MEDS: Moxifloxacin IV 400mg/250ml NS 250 ML IVPB SCH (22:30)
--- NOTE | 2016-10-13 23:14 | CP.PCM.PN ---
Subjective - Date & Time of Evaluation Date of Evaluation: 10/13/16 Time of Evaluation: 11:10 - Subjective Subjective: Patient seen and evakuated No cardiac events Objective - Vital Signs/Intake and Output Vital Signs (last 24 hours): Temp Pulse Resp BP Pulse Ox 97.4 F L 63 20 152/80 H 95 10/13/16 16:04 10/13/16 18:00 10/13/16 16:04 10/13/16 16:04 10/13/16 16:04 Intake and Output: 10/13/16 10/14/16 18:59 06:59 Intake Total 800 Balance 800 - Medications Medications: Current Medications Acetaminophen (Tylenol 325mg Tab) 975 mg PO Q4 PRN PRN Reason: Fever >100.4 F Amlodipine Besylate (Norvasc) 10 mg PO DAILY [facility] Last Admin: 10/13/16 09:23 Dose: 10 mg Aspirin (Aspirin Chewable) 81 mg PO DAILY [facility] Last Admin: 10/13/16 09:23 Dose: 81 mg Carvedilol (Coreg) 6.25 mg PO BID [facility] Last Admin: 10/13/16 17:35 Dose: 6.25 mg Enoxaparin Sodium (Lovenox) 40 mg SC DAILY [facility] Last Admin: 10/13/16 09:22 Dose: 40 mg Gabapentin (Neurontin) 300 mg PO BID [facility] Last Admin: 10/13/16 17:37 Dose: 300 mg Hydralazine HCl (Apresoline) 50 mg PO BID [facility] Last Admin: 10/13/16 17:35 Dose: 50 mg Moxifloxacin HCl (Avelox Iv 400mg/250ml Ns) 250 mls @ 167 mls/hr IVPB Q24H [facility] Last Admin: 10/13/16 22:30 Dose: 167 mls/hr Linezolid (Zyvox 600mg/300ml D5w) 300 mls @ 200 mls/hr IVPB Q12 [facility] Last Admin: 10/13/16 21:05 Dose: 200 mls/hr Pantoprazole Sodium (Protonix Ec Tab) 40 mg PO DAILY [facility] Last Admin: 10/13/16 09:23 Dose: 40 mg Temazepam (Restoril) 15 mg PO HS PRN PRN Reason: insomnia Last Admin: 10/12/16 23:52 Dose: 15 mg - Labs Labs: 10/13/16 08:33 10/13/16 08:33
[2016-10-14 06:32] LABS: BASO % 0.7 % (0.0-2.0); EOS % 15.8 % (0.0-4.0); HEMATOCRIT 38.5 % (35.0-51.0); LYMPH # 0.7 K/uL (1.0-4.3); LYMPH % 11.7 % (20.0-40.0); MEAN CELL VOLUME 89.2 fL (80.0-94.0); MEAN CORPUSCULAR HEMOGLOBIN 28.7 pg (27.0-31.0); MEAN CORPUSCULAR HGB CONC 32.2 g/dL (33.0-37.0); MEAN PLATELET VOLUME 8.2 fL (7.2-11.7); MONO # 1.7 K/uL (0.0-0.8); MONO % 26.8 % (0.0-10.0); NRBC % 0.1 % (0.0-2.0); PLATELET COUNT 177 K/uL (130-400); RED CELL DISTRIBUTION WIDTH 15.1 % (11.5-14.5); WHITE BLOOD COUNT 6.2 K/uL (4.8-10.8)
[2016-10-14 06:39] LABS: POTASSIUM 4.4 mmol/L (3.6-5.2)
[2016-10-14 06:41] LABS: ALB/GLOB RATIO 1.5 (1.0-2.1); BILIRUBIN,TOTAL 0.9 mg/dL (0.2-1.3)
--- NOTE | 2016-10-14 09:00 | CP.PCM.PN ---
Subjective - Date & Time of Evaluation Date of Evaluation: 10/14/16 Time of Evaluation: 10:00 - Subjective Subjective: Dr. Dorado service: Patient seen and examined in room. Patient reports having some fever and chills with some diffaculty breathing before admission. He says he is feeling much better and breathing easier. Objective - Vital Signs/Intake and Output Vital Signs (last 24 hours): Temp Pulse Resp BP Pulse Ox 97.5 F L 63 20 159/74 H 95 10/13/16 23:15 10/13/16 23:15 10/13/16 23:15 10/13/16 23:15 10/13/16 23:15 Intake and Output: 10/14/16 10/14/16 06:59 18:59 Intake Total 800 Output Total 900 Balance -100 - Medications Medications: Current Medications Acetaminophen (Tylenol 325mg Tab) 975 mg PO Q4 PRN PRN Reason: Fever >100.4 F Amlodipine Besylate (Norvasc) 10 mg PO DAILY [facility] Last Admin: 10/13/16 09:23 Dose: 10 mg Aspirin (Aspirin Chewable) 81 mg PO DAILY [facility] Last Admin: 10/13/16 09:23 Dose: 81 mg Carvedilol (Coreg) 6.25 mg PO BID [facility] Last Admin: 10/13/16 17:35 Dose: 6.25 mg Enoxaparin Sodium (Lovenox) 40 mg SC DAILY [facility] Last Admin: 10/13/16 09:22 Dose: 40 mg Gabapentin (Neurontin) 300 mg PO BID [facility] Last Admin: 10/13/16 17:37 Dose: 300 mg Hydralazine HCl (Apresoline) 50 mg PO BID [facility] Last Admin: 10/13/16 17:35 Dose: 50 mg Moxifloxacin HCl (Avelox Iv 400mg/250ml Ns) 250 mls @ 167 mls/hr IVPB Q24H [facility] Last Admin: 10/13/16 22:30 Dose: 167 mls/hr Linezolid (Zyvox 600mg/300ml D5w) 300 mls @ 200 mls/hr IVPB Q12 [facility] Last Admin: 10/13/16 21:05 Dose: 200 mls/hr Pantoprazole Sodium (Protonix Ec Tab) 40 mg PO DAILY [facility] Last Admin: 10/13/16 09:23 Dose: 40 mg Temazepam (Restoril) 15 mg PO HS PRN PRN Reason: insomnia Last Admin: 10/13/16 23:52 Dose: 15 mg - Labs Labs: 10/14/16 06:21 10/14/16 06:21 - Constitutional Appears: Non-toxic, No Acute Distress - Head Exam Head Exam: NORMAL INSPECTION - Eye Exam Eye Exam: Normal appearance Pupil Exam: NORMAL ACCOMODATION - ENT Exam ENT Exam: Normal Exam - Neck Exam Neck Exam: Normal Inspection - Respiratory Exam Respiratory Exam: Clear to Ausculation Bilateral. absent: Rales, Rhonchi, Wheezes - Cardiovascular Exam Cardiovascular Exam: REGULAR RHYTHM, RRR, +S1, +S2. absent: Gallop, Rubs - GI/Abdominal Exam GI & Abdominal Exam: Soft, Normal Bowel Sounds. absent: Tenderness - Extremities Exam Extremities Exam: Normal Inspection. absent: Pedal Edema - Back Exam Back Exam: NORMAL INSPECTION - Neurological Exam Neurological Exam: Alert - Psychiatric Exam Psychiatric exam: Normal Affect - Skin Skin Exam: Normal Color, Warm Assessment and Plan (1) Pneumonia Assessment & Plan: Patient is discharged home with Avelox for [address] Paulino. He was also cleared for discharge by Dr. Zavala as well. Status: Acute
[2016-10-14 09:30] LABS: EOSINOPHIL 17 % (0-4); NEUTROPHIL 49 % (50-75); TOTAL CELLS COUNTED 100
[2016-10-14] MEDS: Enoxaparin 40 mg Syringe SC SCH (10:02)
[2016-10-14] MEDS: Pantoprazole 40 mg EC Tab PO SCH (10:05)
[2016-10-14] MEDS: Linezolid 600 mg in D5W 300 ml 300 ML IVPB SCH (10:06)
[2016-10-14 11:47] VITALS: O2SAT 97
--- NOTE | 2016-10-14 11:52 | CARD ---
APPROVED REPORT EKG Measurement Heart [id number] <Conclusion> Atrial fibrillation with premature ventricular or aberrantly conducted complexes Minimal voltage criteria for LVH, may be normal variant Abnormal ECG
--- NOTE | 2016-10-14 13:42 | CP.PCM.PN ---
Subjective - Date & Time of Evaluation Date of Evaluation: 10/14/16 Time of Evaluation: 01:00 - Subjective Subjective: dictated Objective - Vital Signs/Intake and Output Vital Signs (last 24 hours): Temp Pulse Resp BP Pulse Ox 98.1 F 65 20 150/80 97 10/14/16 11:35 10/14/16 11:35 10/14/16 11:35 10/14/16 11:35 10/14/16 11:35 Intake and Output: 10/14/16 10/14/16 06:59 18:59 Intake Total 800 Output Total 900 Balance -100 - Medications Medications: Current Medications Acetaminophen (Tylenol 325mg Tab) 975 mg PO Q4 PRN PRN Reason: Fever >100.4 F Amlodipine Besylate (Norvasc) 10 mg PO DAILY [facility] Last Admin: 10/14/16 10:05 Dose: 10 mg Aspirin (Aspirin Chewable) 81 mg PO DAILY [facility] Last Admin: 10/14/16 10:01 Dose: 81 mg Carvedilol (Coreg) 6.25 mg PO BID [facility] Last Admin: 10/14/16 10:02 Dose: 6.25 mg Enoxaparin Sodium (Lovenox) 40 mg SC DAILY [facility] Last Admin: 10/14/16 10:02 Dose: 40 mg Gabapentin (Neurontin) 300 mg PO BID [facility] Last Admin: 10/14/16 10:04 Dose: 300 mg Hydralazine HCl (Apresoline) 50 mg PO BID [facility] Last Admin: 10/14/16 10:01 Dose: 50 mg Moxifloxacin HCl (Avelox Iv 400mg/250ml Ns) 250 mls @ 167 mls/hr IVPB Q24H [facility] Last Admin: 10/13/16 22:30 Dose: 167 mls/hr Linezolid (Zyvox 600mg/300ml D5w) 300 mls @ 200 mls/hr IVPB Q12 [facility] Last Admin: 10/14/16 10:06 Dose: 200 mls/hr Pantoprazole Sodium (Protonix Ec Tab) 40 mg PO DAILY [facility] Last Admin: 10/14/16 10:05 Dose: 40 mg Temazepam (Restoril) 15 mg PO HS PRN PRN Reason: insomnia Last Admin: 10/13/16 23:52 Dose: 15 mg - Labs Labs: 10/14/16 06:21 10/14/16 06:21 Assessment and Plan (1) Fever Status: Acute
--- NOTE | 2016-10-14 14:04 | PN ---
DATE: 10/14/2016 He is feeling better. He denies any fevers, denies any respiratory problems and he has received anti biotics for 2 days. Cultures have been all negative, urine and blood, but there is no plan culture. PHYSICAL EXAMINATION: HEENT: Head is atraumatic, normocephalic. NECK: Supple. LUNGS: Clear. No crackles or rales present. HEART: S1, S2 if regular. He has a Port-A-Cath on the right side. ABDOMEN: Soft, nontender, no guarding, no rigidity present. EXTREMITIES: Have no edema, clubbing or cyanosis. 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 He had fever post-chemo, seems to have lung probl ems with pneumonia and he is going to go home on Avelox for 5 days more and he received Avelox today . HE IS ALLERGIC TO PENICILLIN. He is supposed to follow with ____ and Dr. Valentin who gives him t he chemo, probably can be started next week. Galileo Paulino MD cc: [id number] TT: 10/14/2016 14:03:11 Confirmation # [id number] Dictation # [id number]
--- NOTE | 2016-10-14 14:31 | CP.PCM.PN ---
Subjective - Date & Time of Evaluation Date of Evaluation: 10/14/16 Time of Evaluation: 14:31 Objective - Vital Signs/Intake and Output Vital Signs (last 24 hours): Temp Pulse Resp BP Pulse Ox 98.1 F 65 20 150/80 97 10/14/16 11:35 10/14/16 11:35 10/14/16 11:35 10/14/16 11:35 10/14/16 11:35 Intake and Output: 10/14/16 10/14/16 06:59 18:59 Intake Total 800 Output Total 900 Balance -100 - Medications Medications: Current Medications Acetaminophen (Tylenol 325mg Tab) 975 mg PO Q4 PRN PRN Reason: Fever >100.4 F Amlodipine Besylate (Norvasc) 10 mg PO DAILY [facility] Last Admin: 10/14/16 10:05 Dose: 10 mg Aspirin (Aspirin Chewable) 81 mg PO DAILY [facility] Last Admin: 10/14/16 10:01 Dose: 81 mg Carvedilol (Coreg) 6.25 mg PO BID [facility] Last Admin: 10/14/16 10:02 Dose: 6.25 mg Enoxaparin Sodium (Lovenox) 40 mg SC DAILY [facility] Last Admin: 10/14/16 10:02 Dose: 40 mg Gabapentin (Neurontin) 300 mg PO BID [facility] Last Admin: 10/14/16 10:04 Dose: 300 mg Hydralazine HCl (Apresoline) 50 mg PO BID [facility] Last Admin: 10/14/16 10:01 Dose: 50 mg Moxifloxacin HCl (Avelox Iv 400mg/250ml Ns) 250 mls @ 167 mls/hr IVPB Q24H [facility] Last Admin: 10/13/16 22:30 Dose: 167 mls/hr Linezolid (Zyvox 600mg/300ml D5w) 300 mls @ 200 mls/hr IVPB Q12 [facility] Last Admin: 10/14/16 10:06 Dose: 200 mls/hr Pantoprazole Sodium (Protonix Ec Tab) 40 mg PO DAILY [facility] Last Admin: 10/14/16 10:05 Dose: 40 mg Temazepam (Restoril) 15 mg PO HS PRN PRN Reason: insomnia Last Admin: 10/13/16 23:52 Dose: 15 mg - Labs Labs: 10/14/16 06:21 10/14/16 06:21
--- NOTE | 2016-10-14 14:54 | CP.PCM.PN ---
Subjective - Date & Time of Evaluation Date of Evaluation: 10/14/16 Time of Evaluation: 13:00 - Subjective Subjective: clinically same Objective - Vital Signs/Intake and Output Vital Signs (last 24 hours): Temp Pulse Resp BP Pulse Ox 98.1 F 65 20 150/80 97 10/14/16 11:35 10/14/16 11:35 10/14/16 11:35 10/14/16 11:35 10/14/16 11:35 Intake and Output: 10/14/16 10/14/16 06:59 18:59 Intake Total 800 Output Total 900 Balance -100 - Medications Medications: Current Medications Acetaminophen (Tylenol 325mg Tab) 975 mg PO Q4 PRN PRN Reason: Fever >100.4 F Amlodipine Besylate (Norvasc) 10 mg PO DAILY [facility] Last Admin: 10/14/16 10:05 Dose: 10 mg Aspirin (Aspirin Chewable) 81 mg PO DAILY [facility] Last Admin: 10/14/16 10:01 Dose: 81 mg Carvedilol (Coreg) 6.25 mg PO BID [facility] Last Admin: 10/14/16 10:02 Dose: 6.25 mg Enoxaparin Sodium (Lovenox) 40 mg SC DAILY [facility] Last Admin: 10/14/16 10:02 Dose: 40 mg Gabapentin (Neurontin) 300 mg PO BID [facility] Last Admin: 10/14/16 10:04 Dose: 300 mg Hydralazine HCl (Apresoline) 50 mg PO BID [facility] Last Admin: 10/14/16 10:01 Dose: 50 mg Moxifloxacin HCl (Avelox Iv 400mg/250ml Ns) 250 mls @ 167 mls/hr IVPB Q24H [facility] Last Admin: 10/13/16 22:30 Dose: 167 mls/hr Linezolid (Zyvox 600mg/300ml D5w) 300 mls @ 200 mls/hr IVPB Q12 [facility] Last Admin: 10/14/16 10:06 Dose: 200 mls/hr Pantoprazole Sodium (Protonix Ec Tab) 40 mg PO DAILY [facility] Last Admin: 10/14/16 10:05 Dose: 40 mg Temazepam (Restoril) 15 mg PO HS PRN PRN Reason: insomnia Last Admin: 10/13/16 23:52 Dose: 15 mg - Labs Labs: 10/14/16 06:21 10/14/16 06:21 - Constitutional Appears: Well - Head Exam Head Exam: ATRAUMATIC, NORMAL INSPECTION, NORMOCEPHALIC - Eye Exam Eye Exam: EOMI, Normal appearance, PERRL Pupil Exam: NORMAL ACCOMODATION, PERRL - ENT Exam ENT Exam: Mucous Membranes Moist, Normal Exam - Neck Exam Neck Exam: Full ROM, Normal Inspection. 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 Status: Acute (9) Atherosclerotic PVD with ulceration Status: Acute (10) Chest pain Status: Acute (11) Chronic congestive heart failure Status: Acute (12) Critical stenosis of aortic valve Status: Acute (13) Decubitus ulcer with gangrene Status: Acute (14) Defibrillator discharge Status: Acute (15) Dyspnea Status: Acute (16) Dyspnea on exertion Status: Acute (17) ESBL (extended spectrum beta-lactamase) producing bacteria infection Status: Acute (18) Elevated troponin Status: Acute (19) Elevated troponin I level Status: Acute (20) Epigastric pain Status: Acute (21) Fever Status: Acute (22) Flash pulmonary edema Status: Acute (23) GI bleeding Status: Acute (24) Gangrene Status: Acute (25) History of bowel resection Status: Acute (26) Hypernatremia Status: Acute (27) Hypocalcemia Status: Acute (28) Hypokalemia Status: Acute (29) Irregular cardiac rhythm Status: Acute (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 (31) On antineoplastic chemotherapy Status: Acute (32) Paraplegia Status: Acute (33) Pneumonia Status: Acute (34) Prophylactic measure Status: Acute (35) Proteus mirabilis pneumonia Status: Acute (36) Rapid atrial fibrillation Status: Acute (37) Renal insufficiency Status: Acute (38) Respiratory failure Status: Acute (39) Sciatica Status: Acute (40) Severe anemia Status: Acute (41) Sprain Status: Acute (42) UTI (urinary tract infection) Status: Acute (43) Waldenstroms macroglobulinemia Status: Acute (44) Weakness Status: Acute (45) Aortic stenosis Status: Chronic (46) CAD (coronary artery disease) Status: Chronic (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
--- NOTE | 2016-10-14 15:52 | PCM.HF ---
Heart Failure Core Measure - Heart Failure Ejection Fraction: Less Than 40 % (lvef 25-30%) ROBERT Inhibitor Prescribed: No Contraindication/Reason for not providing: renal insufficiency Beta-Phillip Prescribed: Carvedilol Angiotensin II Receptor Phillip Prescribed: No Contraindication/Reason for not providing: renal insufficiency AnticoagulationTherapy for Atrial Fibrillation/Atrialflutter: No Contraindication/Reason for not providing: no afib Aldosterone Antagonist Prescribed: No Contraindication/Reason for not providing: not rx by Hydralazine Nitrate Prescribed: Yes Implantable Cardioverter Defibrillator Therapy: No Contraindication/Reason for not providing: not indicated Cardiac Resynchronization Therapy Prescribed: No Contraindication/Reason for not providing: not indicated - Follow up Will be discharged to: Home Follow Up Date (must be within 7 days from discharge): 10/17/16 Follow Up Time: 09:00
[2016-10-14 17:26] VITALS: BP 147/67; PULSE 68; TEMP 97.5
--- NOTE | 2016-10-16 23:32 | CARD ---
APPROVED REPORT EKG Measurement Heart [id number] <Conclusion> Atrial fibrillation with rapid ventricular response with premature ventricular or aberrantly conducted complexes Moderate voltage criteria for LVH, may be normal variant ST & T wave abnormality, consider lateral ischemia Abnormal ECG
--- NOTE | 2016-10-20 12:08 | PQF SEPSIS ---
This form is a permanent part of the medical record To Susan Dorado MD, Patient was admitted with fever and chills status post chemotheraphy for Ca of Larynx, history of HTN/CKD/CHF, ETC diagnosed with Pneumonia , Please clarify if SEPSIS was ruled in or ruled out. Thank you Clarification of your documentation is requested to better reflect the severity of illness and intensity of treatment of your patient. Indicators present [X] Temp < 96.8 or > 100.4 [] WBC count > 12,000/mm3 or <000/mm3 or 10% immature neutrophils [] Heart Rate > 90 [] Respiratory Rate > 20 [X] Fever or hypothermia [X] Chills [] Positive blood cultures [] Hypotension [] Metabolic acidosis (Elevated lactate level, anion gap or reduced blood pH) [] Acute confusion /Altered Mental Status [] Shock [X] Other: [] Location in the medical record that reflects the above clinical findings: [] Progress Note - Sepsis with pneumonia / Lab note _ Sepsis Treatment Provided: [] PHYSICIAN'S RESPONSE Based on your medical judgment of the clinical indicators outlined above, are you treating this patient for a known or suspected: [] Sepsis / Septicemia Please specify organism if known [] [] SIRS (Systemic Inflammatory Response Syndrome) [] Severe Sepsis (Sepsis with Associated Organ Dysfunction) [] Fever of Unknown Origin [] Other, please indicate: [] [] If Unable to Determine, please check the box, sign and date. Present On Admission (POA) Indicator: [] Present at the time of admission [] Not present at the time of admission [] Clinically Undetermined In responding to this query, please exercise your independent professional judgment. The fact that a question is asked does not imply that any particular answer is desired or expected. Thank you for your clarification on this documentation. If you have any questions please call:[ ] * Thank you, [ Merline Rodríguez, JACK] ore crushing dust collector LESLEY
--- NOTE | 2016-10-24 23:22 | CARD ---
APPROVED REPORT EKG Measurement Heart [id number] <Conclusion> Atrial fibrillation with slow ventricular response with occasional ventricular-paced complexes Minimal voltage criteria for LVH, may be normal variant ST & T wave abnormality, consider inferolateral ischemia Abnormal ECG
== END 2016-10-14 18:26 | disposition home or self-care (01) | DRG 871 ==
LOC: C.ER 20:28 → C.9E 22:51 → C.6T 10-12 00:56
PROVIDERS: ADMIT Internal Medicine Nephrology; ATTEND Internal Medicine Nephrology
DX: A41.9 Sepsis, unspecified organism (principal); J18.9 Pneumonia, unspecified organism; D72.1 Eosinophilia; I13.0 Hypertensive heart and chronic kidney disease with heart failure and stage 1 through stage 4 chronic kidney disease, or unspecified chronic kidney disease; I42.9 Cardiomyopathy, unspecified; I50.9 Heart failure, unspecified; R65.20 Severe sepsis without septic shock; I48.91 Unspecified atrial fibrillation; C32.9 Malignant neoplasm of larynx, unspecified; J44.9 Chronic obstructive pulmonary disease, unspecified; D64.9 Anemia, unspecified; M19.90 Unspecified osteoarthritis, unspecified site; I25.10 Atherosclerotic heart disease of native coronary artery without angina pectoris; E78.00 Pure hypercholesterolemia, unspecified; E78.5 Hyperlipidemia, unspecified; N18.9 Chronic kidney disease, unspecified; Z95.0 Presence of cardiac pacemaker; R50.2 Drug induced fever; T45.1X5A Adverse effect of antineoplastic and immunosuppressive drugs, initial encounter; Z88.0 Allergy status to penicillin; Z87.891 Personal history of nicotine dependence; M10.9 Gout, unspecified; Z95.2 Presence of prosthetic heart valve

== ENCOUNTER 2017-07-25 11:29 | Observation (INO) | payer MEDICARE ==
[2017-07-25 11:29] VITALS: PULSE 76
[2017-07-25 11:45] VITALS: BMI 23.3
--- NOTE | 2017-07-25 15:06 | C.PDOC ---
History Of Present Illness 76 y/o male with PMHx of CAD, CHF, COPD, HTN and layngeal Malignancy presents to ED with complaints of cough, chest pain when coughing and nasal congestion for 3 days. Patient states he has trick Vicks and lemon with honey but had no relief. Patient admits to chills and denies fever, nausea, vomiting, sob or any other complaints at this time. Time Seen by Provider: 07/25/17 14:20 Chief Complaint (Nursing): Flu-like Symptoms History Per: Patient History/Exam Limitations: no limitations Onset/Duration Of Symptoms: Days Current Symptoms Are (Timing): Still Present Associated Symptoms: Cough, Nasal Congestion Past Medical History Reviewed: Historical Data, Nursing Documentation, Vital Signs Vital Signs: Last Vital Signs Temp 97.3 F L 07/27/17 15:39 Pulse 73 07/27/17 15:39 Resp 20 07/27/17 15:39 BP 171/76 H 07/27/17 15:39 Pulse Ox 98 07/27/17 15:39 - Medical History PMH: Anemia (waldenstein anemia), Atrial Fibrillation, CAD, Cardia Arrhythmia, CHF, Gastrointestinal Ulcer, HTN, Hypercholesterolemia, Hyperlipidemia, Malignancy (Larynx and Vocal Cords), Chronic Kidney Disease Surgical History: Endoscopy, Pacemaker - [facility] Procedures ANGIOPLASTY OF OTHER NON-CORONARY VESSEL(S) (02/13/14) CLOSED ENDOSCOPIC BIOPSY OF LARGE INTESTINE (09/08/14) CONTINUOUS INVASIVE MECHANICAL VENTILATION <96 CONSEC HRS (03/06/15) CONTRAST ARTERIOGRAM-LEG (02/13/14) DX ULTRASOUND-HEART (08/24/13) ENDOSC POLYPECTOMY OF LG INTEST (03/03/13) ESOPHAGOGASTRODUODENOSCOPY [EGD] W/CLOSED BIOPSY (09/08/14) EXCISION OF DESCENDING COLON, ENDO, DIAGN (04/05/15) EXCISION OF STOMACH, ENDO, DIAGN (04/05/15) FUSION/REFUS OF 4-8 VERTEBRAE (05/02/13) INFLUENZA VACCINATION (05/26/14) INSEJ [id number] PERIPHERAL NON-CORONARY VES STENT(S) (02/13/14) INSERT ENDOTRACHEAL TUBE (03/06/15) INSERTION OF FOUR OR MORE VASCULAR STENTS (02/13/14) INSERTION OF TOTALLY IMPLANTABLE VASC ACCESS DEVIC (09/29/14) INSPECTION OF UPPER INTESTINAL TRACT, ENDO (04/05/15) OCCUPATIONAL THERAPY (03/13/13) OTH CERVICAL FUSION OF POSTERIOR COLUMN, POSTERIOR TECHNIQUE (05/02/13) OTHER ENDOSCOPY OF SM INTEST (03/03/13) PACKED CELL TRANSFUSION (03/06/15) PHYSICAL THERAPY NEC (03/13/13) PROCEDURE ON SINGLE VESSEL (02/13/14) RADIOTHERAPEUT PROC NEC (03/13/13) SPINAL CANAL EXPLOR NEC (05/02/13) THERAPEUTIC ERYTHROCYTAPHERESIS (08/19/14) TRANSFUSE NONAUT RED BLOOD CELLS IN PERIPH VEIN, PERC (04/05/15) ULTRASONOGRAPHY OF RIGHT AND LEFT HEART, TRANSESOPHAGEAL (11/09/15) VACCINATION NEC (05/26/14) Family History: States: No Known Family Hx - Social History Hx Tobacco Use: No Hx Alcohol Use: No Hx Substance Use: No - Immunization History Hx Tetanus Toxoid Vaccination: No Hx Influenza Vaccination: No Hx Pneumococcal Vaccination: No Review Of Systems Constitutional: Positive for: Chills. Negative for: Fever ENT: Positive for: Nose Congestion Cardiovascular: Positive for: Chest Pain Respiratory: Positive for: Cough Gastrointestinal: Negative for: Nausea, Vomiting Skin: Negative for: Rash Physical Exam - Physical Exam Appears: Non-toxic, No Acute Distress Skin: Warm, Dry, No Rash Head: Atraumatic, Normacephalic Eye(s): bilateral: Normal Inspection, EOMI Nose: Normal Oral Mucosa: Moist Throat: Normal, No Erythema, No Exudate Neck: Supple Chest: Symmetrical, Other (Port a cath of right side) Cardiovascular: Rhythm Regular Respiratory: Normal Breath Sounds, No Accessory Muscle Use, No Rales, No Rhonchi , No Wheezing Gastrointestinal/Abdominal: Soft, No Tenderness, No Guarding, No Rebound Extremity: No Pedal Edema, Capillary Refill (<2 seconds) Neurological/Psych: Oriented x3 ED Course And Treatment - Laboratory Results Result Diagrams: 07/27/17 06:55 07/27/17 06:55 ECG: Interpreted By Me, Viewed By Me ECG Rhythm: Atrial Fibrillation Rate From EC (BPM) O2 Sat by Pulse Oximetry: 99 (RA) Pulse Ox Interpretation: Normal - Other Rad CXR X-Ray: Viewed By Me, Read By Radiologist Interpretation: HISTORY: SOB. COMPARISON: Chest x-ray performed 10/11/16. TECHNIQUE: Chest, one view. FINDINGS: Right-sided MediPort extends the SVC. LUNGS: Biapical pleural thickening. Left hilar prominence. Please note that chest x-ray has limited sensitivity for the detection of pulmonary masses. PLEURA: No significant pleural effusion identified. No definite pneumothorax . CARDIOVASCULAR: Single lead left-sided AICD. Mild cardiomegaly. Atherosclerotic calcifications. Ectatic aorta. OSSEOUS STRUCTURES: Degenerative changes. VISUALIZED UPPER ABDOMEN: Elevation of the right hemidiaphragm. OTHER FINDINGS: None. IMPRESSION: Single lead left-sided AICD. Right-sided MediPort. Mild cardiomegaly. Left hilar prominence. Biapical pleural thickening. Elevated right hemidiaphragm. Progress Note: CXR, ECG, Influenza, Blood work, UA ordered. Discussed case with Dr. Dorado agreed upon admisison under his service Disposition - Disposition Disposition: HOSPITALIZED Disposition Time: 18:00 Condition: STABLE - Clinical Impression Clinical Impression: Bronchitis, Chronic kidney disease (CKD), COPD (chronic obstructive pulmonary disease) - PA / AIR POLLUTION AUDITOR / Resident Statement MD/DO has reviewed & agrees with the documentation as recorded. - Scribe Statement The provider has reviewed the documentation as recorded by the Ady Patel All medical record entries made by the Ady were at my direction and personally dictated by me. I have reviewed the chart and agree that the record accurately reflects my personal performance of the history, physical exam, medical decision making, and the department course for this patient. I have also personally directed, reviewed, and agree with the discharge instructions and disposition.
[2017-07-25 15:18] LABS: BASO # 0.1 K/uL (0.0-0.2); BASO % 1.1 % (0.0-2.0); EOS # 0.9 K/uL (0.0-0.7); EOS % 9.2 % (0.0-4.0); LYMPH # 1.4 K/uL (1.0-4.3); LYMPH % 14.8 % (20.0-40.0); MEAN CELL VOLUME 88.9 fL (80.0-94.0); MEAN CORPUSCULAR HEMOGLOBIN 30.1 pg (27.0-31.0); MEAN CORPUSCULAR HGB CONC 33.9 g/dL (33.0-37.0); MEAN PLATELET VOLUME 7.5 fL (7.2-11.7); MONO # 1.1 K/uL (0.0-0.8); MONO % 12.3 % (0.0-10.0); NEUT # 5.8 K/uL (1.8-7.0); NEUT % 62.6 % (50.0-75.0); RBC 4.79 Mil/uL (4.40-5.90); RED CELL DISTRIBUTION WIDTH 14.4 % (11.5-14.5); WHITE BLOOD COUNT 9.2 K/uL (4.8-10.8)
[2017-07-25 15:19] LABS: HEMOGLOBIN 14.4 g/dL (12.0-18.0)
[2017-07-25 15:31] LABS: ALB/GLOB RATIO 1.6 (1.0-2.1); ALBUMIN 4.5 g/dL (3.5-5.0); CALCIUM 9.5 mg/dl (8.6-10.4)
[2017-07-25 15:33] LABS: URINE BILIRUBIN NEGATIVE (NEGATIVE); URINE BLOOD NEGATIVE (NEGATIVE); URINE CLARITY Clear (Clear); URINE COLOR Yellow (YELLOW); URINE GLUCOSE (UA) NORMAL (Normal); URINE LEUKOCYTE ESTERASE NEG Leu/uL (Negative); URINE NITRATE NEGATIVE (NEGATIVE); URINE PROTEIN 2+ mg/dL (NEGATIVE); URINE UROBILINOGEN NORMAL mg/dL (0.2-1.0)
--- NOTE | 2017-07-25 15:40 | RAD ---
HISTORY: SOB COMPARISON: Chest x-ray performed 10/11/16 TECHNIQUE: Chest, one view. FINDINGS: Right-sided MediPort extends the SVC. LUNGS: Biapical pleural thickening. Left hilar prominence. Please note that chest x-ray has limited sensitivity for the detection of pulmonary masses. PLEURA: No significant pleural effusion identified. No definite pneumothorax . CARDIOVASCULAR: Single lead left-sided AICD. Mild cardiomegaly. Atherosclerotic calcifications. Ectatic aorta. OSSEOUS STRUCTURES: Degenerative changes. VISUALIZED UPPER ABDOMEN: Elevation of the right hemidiaphragm. OTHER FINDINGS: None. IMPRESSION: Single lead left-sided AICD. Right-sided MediPort. Mild cardiomegaly. Left hilar prominence. Biapical pleural thickening. Elevated right hemidiaphragm.
[2017-07-25 15:42] LABS: CK-MB 1.66 ng/mL (0.0-3.38); TROPONIN I 0.024 ng/mL (0.00-0.120)
--- NOTE | 2017-07-25 17:14 | CP.PCM.HP ---
Past Patient History - Infectious Disease Hx of Infectious Diseases: None - Tetanus Immunizations Tetanus Immunization: Unknown - Past Medical History & Family History Past Medical History?: Yes - Past Social History Smoking Status: Former Smoker - CARDIAC Hx Atrial Fibrillation: Yes Hx Cardia Arrhythmia: Yes Hx Congestive Heart Failure: Yes Hx Hypercholesterolemia: Yes Hx Hypertension: Yes Hx Pacemaker: Yes - PULMONARY Hx Respiratory Disorders: Yes - NEUROLOGICAL Hx Neurological Disorder: No - HEENT Hx HEENT Problems: Yes Other/Comment: HX VOCAL CORD tumor REMOVED MAR 2013 - RENAL Hx Chronic Kidney Disease: Yes - ENDOCRINE/METABOLIC Hx Endocrine Disorders: No - HEMATOLOGICAL/ONCOLOGICAL Hx Anemia: Yes (waldenstein anemia) - INTEGUMENTARY Hx Dermatological Problems: No - MUSCULOSKELETAL/RHEUMATOLOGICAL Hx Musculoskeletal Disorders: Yes Hx Gout: Yes - GASTROINTESTINAL Hx Gastrointestinal Disorders: Yes - GENITOURINARY/GYNECOLOGICAL Hx Genitourinary Disorders: No - PSYCHIATRIC Hx Substance Use: No - SURGICAL HISTORY Hx Surgeries: Yes 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 LARYNGOSCOPY REMOVAL VOCAL CORD TUMOR - ANESTHESIA Hx Anesthesia: Yes Hx Anesthesia Reactions: No Hx Malignant Hyperthermia: No Meds Allergies/Adverse Reactions: Allergies Allergy/AdvReac Type Severity Reaction Status Date / Time Penicillins Allergy RASH Verified 07/25/17 11:44 Physical Exam - Constitutional Appears: Well - Head Exam Head Exam: ATRAUMATIC, NORMAL INSPECTION, NORMOCEPHALIC - Eye Exam Eye Exam: EOMI, Normal appearance, PERRL Pupil Exam: NORMAL ACCOMODATION, PERRL - ENT Exam ENT Exam: Mucous Membranes Moist, Normal Exam - Neck Exam Neck exam: Positive for: Normal Inspection - Respiratory Exam Respiratory Exam: Decreased Breath Sounds - Cardiovascular Exam Cardiovascular Exam: REGULAR RHYTHM, +S1, +S2 - GI/Abdominal Exam GI & Abdominal Exam: Diminished Bowel Sounds, Soft - Rectal Exam Rectal Exam: Deferred Results - Vital Signs Recent Vital Signs: Last Vital Signs Temp 98.9 F 07/25/17 11:46 Pulse 64 07/25/17 11:46 Resp 18 07/25/17 11:46 BP 161/65 H 07/25/17 11:46 Pulse Ox 99 07/25/17 16:21 - Labs Result Diagrams: 07/25/17 15:14 07/25/17 15:14 Labs: Laboratory Results - last 24 hr 07/25/17 07/25/17 07/25/17 15:14 15:14 15:24 WBC 9.2 RBC 4.79 Hgb 14.4 D Hct 42.6 MCV 88.9 MCH 30.1 MCHC 33.9 RDW 14.4 Plt Count 225 MPV 7.5 Neut % (Auto) 62.6 Lymph % (Auto) 14.8 L Stephenson % (Auto) 12.3 H Eos % (Auto) 9.2 H Baso % (Auto) 1.1 Neut # 5.8 Lymph # 1.4 Stephenson # 1.1 H Eos # 0.9 H Baso # 0.1 Sodium 140 Potassium 4.8 Chloride 105 Carbon Dioxide 22 Anion Gap 17 BUN 30 H Creatinine 2.4 H Est GFR ( Amer) 32 Est GFR (Non-Af Amer) 26 Random Glucose 92 Calcium 9.5 Total Bilirubin 0.7 AST 27 ALT 28 Alkaline Phosphatase 183 H Total Creatine Kinase 56 CK-MB (Mass) 1.66 Troponin I 0.0240 NT-Pro-B Natriuret Pep 5600 H Total Protein 7.4 Albumin 4.5 Globulin 2.9 Albumin/Globulin Ratio 1.6 Urine Color Yellow Urine Clarity Clear Urine pH 6.0 Ur Specific Carrington 1.011 Urine Protein 2+ H Urine Glucose (UA) Normal Urine Ketones Negative Urine Blood Negative Urine Nitrate Negative Urine Bilirubin Negative Urine Urobilinogen Normal Ur Leukocyte Esterase Neg Urine WBC (Auto) < 1 Urine RBC (Auto) < 1 Influenza Typ A,B (EIA) 07/25/17 15:43 WBC RBC Hgb Hct MCV MCH MCHC RDW Plt Count MPV Neut % (Auto) Lymph % (Auto) Stephenson % (Auto) Eos % (Auto) Baso % (Auto) Neut # Lymph # Stephenson # Eos # Baso # Sodium Potassium Chloride Carbon Dioxide Anion Gap BUN Creatinine Est GFR ( Amer) Est GFR (Non-Af Amer) Random Glucose Calcium Total Bilirubin AST ALT Alkaline Phosphatase Total Creatine Kinase CK-MB (Mass) Troponin I NT-Pro-B Natriuret Pep Total Protein Albumin Globulin Albumin/Globulin Ratio Urine Color Urine Clarity Urine pH Ur Specific Carrington Urine Protein Urine Glucose (UA) Urine Ketones Urine Blood Urine Nitrate Urine Bilirubin Urine Urobilinogen Ur Leukocyte Esterase Urine WBC (Auto) Urine RBC (Auto) Influenza Typ A,B (EIA) Negative for flu a/b
[2017-07-25] MEDS ORDERED: Azithromycin 500mg/250ML NS 500 MG/250 ML BAG IVPB SCH (18:30)
[2017-07-26 08:25] LABS: BASO # 0.1 K/uL (0.0-0.2); BASO % 0.7 % (0.0-2.0); EOS # 0.4 K/uL (0.0-0.7); EOS % 5.6 % (0.0-4.0); HEMOGLOBIN 13.8 g/dL (12.0-18.0); LYMPH # 1.7 K/uL (1.0-4.3); LYMPH % 21.4 % (20.0-40.0); MEAN CORPUSCULAR HEMOGLOBIN 30.1 pg (27.0-31.0); MEAN CORPUSCULAR HGB CONC 34.6 g/dL (33.0-37.0); MEAN PLATELET VOLUME 7.8 fL (7.2-11.7); MONO # 1.3 K/uL (0.0-0.8); MONO % 16.6 % (0.0-10.0); NEUT # 4.5 K/uL (1.8-7.0); NEUT % 55.7 % (50.0-75.0); NRBC % 0.1 % (0.0-2.0); RBC 4.59 Mil/uL (4.40-5.90); RED CELL DISTRIBUTION WIDTH 14.5 % (11.5-14.5)
[2017-07-26 08:40] LABS: ALB/GLOB RATIO 1.5 (1.0-2.1); CALCIUM 9.4 mg/dl (8.6-10.4)
[2017-07-26 08:45] LABS: TROPONIN I 0.04 ng/mL (0.00-0.120)
[2017-07-26] MEDS ORDERED: cefTRIAXone IV 1 gm in Dextros 50 ML IVPB SCH (10:00)
[2017-07-26] MEDS: Enoxaparin 40 mg Syringe SC SCH (10:22)
[2017-07-26] MEDS: guaiFENesin 600 mg ER Tab PO SCH ×2 (11:51→18:38)
--- NOTE | 2017-07-26 15:37 | CP.PCM.PN ---
Subjective - Date & Time of Evaluation Date of Evaluation: 07/26/17 Time of Evaluation: 15:31 - Subjective Subjective: PGY2 progress note for Dr. Dorado 76 year old male with past medical history of CAD s/p stent, Defibrilator placement in 2015, CHF, COPD, HTN, hx of larygngeal malignancy s/p resection and radiation, anemia, HLD, CKD is admitted for bronchitis. Patient states that he had a productive cough for 3-4 days prior to admission along with generalized weakness. Pt seen and examined at bedside. Denies having any F/C, CP , SOB. Continues to complain of coughing. Pt tolerating diet. Denies having any N/V/D/C. PMHx: stated above Sx: Defib placement in 2014. Device info: [employer]ipo RF VR 9250. Laryngeal tumor resection, TAVR Objective - Vital Signs/Intake and Output Vital Signs (last 24 hours): Temp Pulse Resp BP Pulse Ox 98.3 F 73 20 151/92 H 96 07/26/17 08:18 07/26/17 12:00 07/26/17 08:18 07/26/17 10:30 07/26/17 08:18 Intake and Output: 07/26/17 07/26/17 06:59 18:59 Intake Total 490 530 Output Total 250 Balance 490 280 - Medications Medications: Current Medications Allopurinol (Zyloprim) 100 mg PO BID [facility] Last Admin: 07/26/17 10:17 Dose: 100 mg Amlodipine Besylate (Norvasc) 10 mg PO DAILY [facility] Last Admin: 07/26/17 10:17 Dose: 10 mg Aspirin (Ecotrin) 81 mg PO DAILY [facility] Last Admin: 07/26/17 10:17 Dose: 81 mg Carvedilol (Coreg) 6.25 mg PO BID [facility] Last Admin: 07/26/17 10:17 Dose: 6.25 mg Enoxaparin Sodium (Lovenox) 40 mg SC DAILY [facility] Last Admin: 07/26/17 10:22 Dose: 40 mg Famotidine (Pepcid) 20 mg PO BID [facility] Last Admin: 07/26/17 10:17 Dose: 20 mg Gabapentin (Neurontin) 300 mg PO BID [facility] Last Admin: 07/26/17 10:16 Dose: 300 mg Guaifenesin (Mucinex La) 600 mg PO BID [facility] Last Admin: 07/26/17 11:51 Dose: 600 mg Hydralazine HCl (Apresoline) 50 mg PO BID [facility] Last Admin: 07/26/17 10:17 Dose: 50 mg Azithromycin 500 mg/ Dextrose 250 mls @ 166.667 mls/hr IVPB Q24H [facility] Last Admin: 07/25/17 19:07 Dose: 166.667 mls/hr Ceftriaxone Sodium 1 gm/ (Sodium Chloride) 100 mls @ 200 mls/hr IVPB Q24H [facility] Last Admin: 07/26/17 10:48 Dose: 200 mls/hr - Labs Labs: 07/26/17 08:06 07/26/17 08:06 - Constitutional Appears: Non-toxic, No Acute Distress - Head Exam Head Exam: ATRAUMATIC - ENT Exam ENT Exam: Mucous Membranes Moist - Respiratory Exam Respiratory Exam: Clear to Ausculation Bilateral. absent: Accessory Muscle Use , Rales, Rhonchi, Wheezes, Respiratory Distress - Cardiovascular Exam Cardiovascular Exam: REGULAR RHYTHM, +S1, +S2. absent: Gallop, Rubs, Murmur - GI/Abdominal Exam GI & Abdominal Exam: Soft, Normal Bowel Sounds. absent: Distended, Firm, Guarding, Rigid, Tenderness - Extremities Exam Extremities Exam: absent: Pedal Edema, Tenderness - Neurological Exam Neurological Exam: Alert, Awake, Oriented x3 - Psychiatric Exam Psychiatric exam: Normal Affect, Normal Mood - Skin Skin Exam: Dry, Intact, Normal Color, Warm Assessment and Plan - Assessment and Plan (Free Text) Assessment: 76 year old male with past medical history of CAD s/p stent, Defibrilator placement in 2015, CHF, COPD, HTN, hx of larygngeal malignancy s/p resection and radiation, anemia, HLD, CKD is admitted for bronchitis vs. PNA Bronchitis Pt was afebrile on presentation and had normal WBC count CXR on admission showe cardiomegaly, left hilar prominence, biapical pleural thickening, elevated right hemidiaphragm Pt started on rocephin and zithromax Continue micinex and Will check procal level Started pt on prednisone 40 mg po qd CAD Trops x 3 negative EKG showed no changes form previous Continue home medication: Aspirin, Coreg HTN Continue Norvasc, Coreg and hydralazine CHF Echo done on 11/11/15 shoed EF of 25-30% with mod dilated LA. ProBNP elevated at 5600 Will consider consulting cardiology COPD Duoneb prn NC prn Prophylaxis pepcid lovenox Case discussed with attending. All recs and orders per Dr. Dorado
[2017-07-26] MEDS ORDERED: Albuterol-Ipratrop 3 mg / 0.5 (3 ml) UD INH PRN (15:48)
--- NOTE | 2017-07-26 15:49 | CP.PCM.CON ---
Past Patient History - Infectious Disease Hx of Infectious Diseases: None - Tetanus Immunizations Tetanus Immunization: Unknown - Past Medical History & Family History Past Medical History?: Yes - Past Social History Smoking Status: Former Smoker - CARDIAC Hx Cardiac Disorders: Yes Hx Atrial Fibrillation: Yes Hx Cardia Arrhythmia: Yes Hx Congestive Heart Failure: Yes Hx Hypercholesterolemia: Yes Hx Hypertension: Yes Hx Pacemaker: Yes - PULMONARY Hx Respiratory Disorders: Yes Hx Chronic Obstructive Pulmonary Disease (COPD): Yes - NEUROLOGICAL Hx Neurological Disorder: No - HEENT Hx HEENT Problems: Yes Other/Comment: HX VOCAL CORD tumor REMOVED MAR 2013 - RENAL Hx Chronic Kidney Disease: Yes - ENDOCRINE/METABOLIC Hx Endocrine Disorders: No - HEMATOLOGICAL/ONCOLOGICAL Hx Blood Disorders: Yes Hx Anemia: Yes (waldenstein anemia) - INTEGUMENTARY Hx Dermatological Problems: No - MUSCULOSKELETAL/RHEUMATOLOGICAL Hx Musculoskeletal Disorders: Yes Hx Falls: No Hx Gout: Yes - GASTROINTESTINAL Hx Gastrointestinal Disorders: No - GENITOURINARY/GYNECOLOGICAL Hx Genitourinary Disorders: No - PSYCHIATRIC Hx Psychophysiologic Disorder: No Hx Substance Use: No - SURGICAL HISTORY Hx Surgeries: Yes 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 LARYNGOSCOPY REMOVAL VOCAL CORD TUMOR - ANESTHESIA Hx Anesthesia: Yes Hx Anesthesia Reactions: No Hx Malignant Hyperthermia: No Has any member of the family had a problem w/ anesthesia?: No Meds Allergies/Adverse Reactions: Allergies Allergy/AdvReac Type Severity Reaction Status Date / Time Penicillins Allergy RASH Verified 07/25/17 11:44 - Medications Medications: Current Medications Allopurinol (Zyloprim) 100 mg PO BID [facility] Last Admin: 07/26/17 10:17 Dose: 100 mg Amlodipine Besylate (Norvasc) 10 mg PO DAILY [facility] Last Admin: 07/26/17 10:17 Dose: 10 mg Aspirin (Ecotrin) 81 mg PO DAILY [facility] Last Admin: 07/26/17 10:17 Dose: 81 mg Carvedilol (Coreg) 6.25 mg PO BID [facility] Last Admin: 07/26/17 10:17 Dose: 6.25 mg Enoxaparin Sodium (Lovenox) 40 mg SC DAILY [facility] Last Admin: 07/26/17 10:22 Dose: 40 mg Famotidine (Pepcid) 20 mg PO BID [facility] Last Admin: 07/26/17 10:17 Dose: 20 mg Gabapentin (Neurontin) 300 mg PO BID [facility] Last Admin: 07/26/17 10:16 Dose: 300 mg Guaifenesin (Mucinex La) 600 mg PO BID [facility] Last Admin: 07/26/17 11:51 Dose: 600 mg Hydralazine HCl (Apresoline) 50 mg PO BID [facility] Last Admin: 07/26/17 10:17 Dose: 50 mg Azithromycin 500 mg/ Dextrose 250 mls @ 166.667 mls/hr IVPB Q24H [facility] Last Admin: 07/25/17 19:07 Dose: 166.667 mls/hr Ceftriaxone Sodium 1 gm/ (Sodium Chloride) 100 mls @ 200 mls/hr IVPB Q24H [facility] Last Admin: 07/26/17 10:48 Dose: 200 mls/hr Results - Vital Signs Recent Vital Signs: Last Vital Signs Temp 98.3 F 07/26/17 08:18 Pulse 73 07/26/17 12:00 Resp 20 07/26/17 08:18 BP 151/92 H 07/26/17 10:30 Pulse Ox 96 07/26/17 08:18 - Labs Result Diagrams: 07/26/17 08:06 07/26/17 08:06 Labs: Laboratory Results - last 24 hr 07/25/17 07/26/17 07/26/17 15:43 08:06 08:06 WBC 8.0 RBC 4.59 Hgb 13.8 Hct 39.9 MCV 87.0 MCH 30.1 MCHC 34.6 RDW 14.5 Plt Count 225 MPV 7.8 Neut % (Auto) 55.7 Lymph % (Auto) 21.4 Ed[place] % (Auto) 16.6 H Eos % (Auto) 5.6 H Baso % (Auto) 0.7 Neut # (Auto) 4.5 Lymph # (Auto) 1.7 [place]on # (Auto) 1.3 H Eos # (Auto) 0.4 Baso # (Auto) 0.1 Sodium 139 Potassium 4.4 Chloride 106 Carbon Dioxide 21 L Anion Gap 17 BUN 29 H Creatinine 2.4 H Est GFR ( Amer) 32 Est GFR (Non-Af Amer) 26 Random Glucose 103 Calcium 9.4 Total Bilirubin 0.8 AST 26 ALT 22 Alkaline Phosphatase 163 H Troponin I 0.0400 Total Protein 6.6 Albumin 4.0 Globulin 2.6 Albumin/Globulin Ratio 1.5 Influenza Typ A,B (EIA) Negative for flu a/b 07/26/17 13:48 WBC RBC Hgb Hct MCV MCH MCHC RDW Plt Count MPV Neut % (Auto) Lymph % (Auto) [place] % (Auto) Eos % (Auto) Baso % (Auto) Neut # (Auto) Lymph # (Auto) [place] # (Auto) Eos # (Auto) Baso # (Auto) Sodium Potassium Chloride Carbon Dioxide Anion Gap BUN Creatinine Est GFR ( Amer) Est GFR (Non-Af Amer) Random Glucose Calcium Total Bilirubin AST ALT Alkaline Phosphatase Troponin I 0.0420 Total Protein Albumin Globulin Albumin/Globulin Ratio Influenza Typ A,B (EIA)
--- NOTE | 2017-07-26 18:40 | CP.PCM.PN ---
Subjective - Date & Time of Evaluation Date of Evaluation: 07/26/17 Time of Evaluation: 12:00 - Subjective Subjective: clinically same Objective - Vital Signs/Intake and Output Vital Signs (last 24 hours): Temp Pulse Resp BP Pulse Ox 98.5 F 60 20 158/80 H 98 07/26/17 15:00 07/26/17 15:00 07/26/17 15:00 07/26/17 15:00 07/26/17 15:00 Intake and Output: 07/26/17 07/26/17 06:59 18:59 Intake Total 490 530 Output Total 250 Balance 490 280 - Medications Medications: Current Medications Albuterol/Ipratropium (Duoneb 3 Mg/0.5 Mg (3 Ml) Ud) 3 ml INH RQ4 PRN PRN Reason: Shortness of Breath Allopurinol (Zyloprim) 100 mg PO BID [facility] Last Admin: 07/26/17 18:39 Dose: Not Given Amlodipine Besylate (Norvasc) 10 mg PO DAILY [facility] Last Admin: 07/26/17 10:17 Dose: 10 mg Aspirin (Ecotrin) 81 mg PO DAILY [facility] Last Admin: 07/26/17 10:17 Dose: 81 mg Carvedilol (Coreg) 6.25 mg PO BID [facility] Last Admin: 07/26/17 18:37 Dose: 6.25 mg Enoxaparin Sodium (Lovenox) 40 mg SC DAILY [facility] Last Admin: 07/26/17 10:22 Dose: 40 mg Famotidine (Pepcid) 20 mg PO BID [facility] Last Admin: 07/26/17 18:38 Dose: 20 mg Gabapentin (Neurontin) 300 mg PO BID [facility] Last Admin: 07/26/17 18:37 Dose: 300 mg Guaifenesin (Mucinex La) 600 mg PO BID [facility] Last Admin: 07/26/17 18:38 Dose: 600 mg Hydralazine HCl (Apresoline) 50 mg PO BID [facility] Last Admin: 07/26/17 18:38 Dose: 50 mg Azithromycin 500 mg/ Dextrose 250 mls @ 166.667 mls/hr IVPB Q24H [facility] Last Admin: 07/25/17 19:07 Dose: 166.667 mls/hr Ceftriaxone Sodium 1 gm/ (Sodium Chloride) 100 mls @ 200 mls/hr IVPB Q24H [facility] Last Admin: 07/26/17 10:48 Dose: 200 mls/hr Prednisone (Prednisone Tab) 40 mg PO DAILY [facility] Last Admin: 07/26/17 16:34 Dose: 40 mg - Labs Labs: 07/26/17 08:06 07/26/17 08:06 - Constitutional Appears: Well - Head Exam Head Exam: ATRAUMATIC, NORMAL INSPECTION, NORMOCEPHALIC - Eye Exam Eye Exam: EOMI, Normal appearance, PERRL Pupil Exam: NORMAL ACCOMODATION, PERRL - ENT Exam ENT Exam: Mucous Membranes Moist, Normal Exam - Neck Exam Neck Exam: Full ROM, Normal Inspection. absent: Lymphadenopathy - Respiratory Exam Respiratory Exam: Decreased Breath Sounds - Cardiovascular Exam Cardiovascular Exam: REGULAR RHYTHM, +S1, +S2 - GI/Abdominal Exam GI & Abdominal Exam: Soft, Diminished Bowel Sounds - Rectal Exam Rectal Exam: Deferred
[2017-07-27] MEDS ORDERED: guaiFENesin DM 200 mg-20 mg/10 ml UD PO ONE (00:39)
[2017-07-27 07:30] LABS: ALB/GLOB RATIO 1.5 (1.0-2.1); CALCIUM 9.2 mg/dl (8.6-10.4)
[2017-07-27 07:34] LABS: BASO % 0.4 % (0.0-2.0); HEMOGLOBIN 13.5 g/dL (12.0-18.0); LYMPH # 1.2 K/uL (1.0-4.3); LYMPH % 21.4 % (20.0-40.0); MEAN CELL VOLUME 88.4 fL (80.0-94.0); MEAN CORPUSCULAR HEMOGLOBIN 30.4 pg (27.0-31.0); MEAN CORPUSCULAR HGB CONC 34.4 g/dL (33.0-37.0); MEAN PLATELET VOLUME 8.1 fL (7.2-11.7); MONO # 0.4 K/uL (0.0-0.8); MONO % 7.1 % (0.0-10.0); NEUT # 3.9 K/uL (1.8-7.0); NEUT % 71.1 % (50.0-75.0); NRBC % 0.1 % (0.0-2.0); RBC 4.46 Mil/uL (4.40-5.90); RED CELL DISTRIBUTION WIDTH 14.4 % (11.5-14.5); WHITE BLOOD COUNT 5.5 K/uL (4.8-10.8)
[2017-07-27] MEDS ORDERED: guaiFENesin 200 mg/10 ml Syrup UD PO PRN (08:38)
[2017-07-27] MEDS: Enoxaparin 40 mg Syringe SC SCH (09:36)
[2017-07-27] MEDS: guaiFENesin 600 mg ER Tab PO SCH (11:29)
--- NOTE | 2017-07-27 16:01 | CP.PCM.PN ---
Subjective - Date & Time of Evaluation Date of Evaluation: 07/27/17 Time of Evaluation: 11:10 - Subjective Subjective: patient seen today , states feeling better c/o dry cough, denie s any fever, chills,chest pain, sob oob ambulating jose hallway without sob No overnight events recorded on monitor Objective - Vital Signs/Intake and Output Vital Signs (last 24 hours): Temp Pulse Resp BP Pulse Ox 97.9 F 67 18 159/83 H 97 07/27/17 07:51 07/27/17 12:00 07/27/17 07:51 07/27/17 09:33 07/27/17 07:51 Intake and Output: 07/27/17 07/27/17 06:59 18:59 Intake Total 30 450 Balance 30 450 - Medications Medications: Current Medications Albuterol/Ipratropium (Duoneb 3 Mg/0.5 Mg (3 Ml) Ud) 3 ml INH RQ4 PRN PRN Reason: Shortness of Breath Allopurinol (Zyloprim) 100 mg PO BID [facility] Last Admin: 07/27/17 09:25 Dose: 100 mg Amlodipine Besylate (Norvasc) 10 mg PO DAILY [facility] Last Admin: 07/27/17 09:25 Dose: 10 mg Aspirin (Ecotrin) 81 mg PO DAILY [facility] Last Admin: 07/27/17 09:25 Dose: 81 mg Enoxaparin Sodium (Lovenox) 40 mg SC DAILY [facility] Last Admin: 07/27/17 09:36 Dose: 40 mg Famotidine (Pepcid) 20 mg PO BID [facility] Last Admin: 07/27/17 09:25 Dose: 20 mg Gabapentin (Neurontin) 300 mg PO BID [facility] Last Admin: 07/27/17 09:24 Dose: 300 mg Guaifenesin (Mucinex La) 600 mg PO BID [facility] Last Admin: 07/27/17 11:29 Dose: Not Given Guaifenesin (Robitussin) 200 mg PO Q4H PRN PRN Reason: Cough and congestion Last Admin: 07/27/17 09:24 Dose: 200 mg Hydralazine HCl (Apresoline) 50 mg PO BID [facility] Last Admin: 07/27/17 09:25 Dose: 50 mg Azithromycin 500 mg/ Dextrose 250 mls @ 166.667 mls/hr IVPB Q24H [facility] Last Admin: 07/26/17 20:05 Dose: 166.667 mls/hr Ceftriaxone Sodium 1 gm/ (Sodium Chloride) 100 mls @ 200 mls/hr IVPB Q24H [facility] Last Admin: 07/27/17 09:32 Dose: 200 mls/hr Prednisone (Prednisone Tab) 40 mg PO DAILY [facility] Last Admin: 07/27/17 09:25 Dose: 40 mg - Labs Labs: 07/27/17 06:55 07/27/17 06:55 Assessment and Plan - Assessment and Plan (Free Text) Assessment: A/P 76 year old male with past medical history of CAD s/p stent, Defibrilator placement in 2015, CHF, COPD, HTN, hx of larygngeal malignancy s/p resection and radiation, anemia, HLD, CKD is admitted for bronchitis Patient clinically improved D/W Dr. Blanco( covering for Dr. Alva) stable for discharge home today and f/u with Dr.J minor [place] [address] Zavala office discharge plan discussed with patient who understands and agrees with plan
--- NOTE | 2017-07-27 16:02 | PCM.HF ---
Heart Failure Core Measure - Heart Failure Ejection Fraction: Less Than 40 % ROBERT Inhibitor Prescribed: No Contraindication/Reason for not providing: CRF/ Beta-Phillip Prescribed: None Contraindication/Reason for not providing: discontinued secondary to anna cardia Angiotensin II Receptor Phillip Prescribed: No Contraindication/Reason for not providing: crf AnticoagulationTherapy for Atrial Fibrillation/Atrialflutter: No Contraindication/Reason for not providing: NSR Contraindication/Reason for not providing: CRF Hydralazine Nitrate Prescribed: Yes Implantable Cardioverter Defibrillator Therapy: No Contraindication/Reason for not providing: pt has pacemaker Cardiac Resynchronization Therapy Prescribed: No Contraindication/Reason for not providing: not clinically indicated/ pt has pacemake r - Follow up Will be discharged to: Home Follow Up Date (must be within 7 days from discharge): 07/31/17 Follow Up Time: 09:00
[2017-07-27 16:41] VITALS: BP 171/76; PULSE 73; RESP 20; TEMP 97.3
--- NOTE | 2017-07-27 18:20 | CP.PCM.PN ---
Subjective - Date & Time of Evaluation Date of Evaluation: 07/27/17 Time of Evaluation: 18:20 Objective - Vital Signs/Intake and Output Vital Signs (last 24 hours): Temp Pulse Resp BP Pulse Ox 97.3 F L 73 20 171/76 H 98 07/27/17 15:39 07/27/17 15:39 07/27/17 15:39 07/27/17 15:39 07/27/17 15:39 Intake and Output: 07/27/17 07/27/17 06:59 18:59 Intake Total 30 450 Balance 30 450 - Medications Medications: Current Medications Albuterol/Ipratropium (Duoneb 3 Mg/0.5 Mg (3 Ml) Ud) 3 ml INH RQ4 PRN PRN Reason: Shortness of Breath Allopurinol (Zyloprim) 100 mg PO BID [facility] Last Admin: 07/27/17 09:25 Dose: 100 mg Amlodipine Besylate (Norvasc) 10 mg PO DAILY [facility] Last Admin: 07/27/17 09:25 Dose: 10 mg Aspirin (Ecotrin) 81 mg PO DAILY [facility] Last Admin: 07/27/17 09:25 Dose: 81 mg Enoxaparin Sodium (Lovenox) 40 mg SC DAILY [facility] Last Admin: 07/27/17 09:36 Dose: 40 mg Famotidine (Pepcid) 20 mg PO BID [facility] Last Admin: 07/27/17 09:25 Dose: 20 mg Gabapentin (Neurontin) 300 mg PO BID [facility] Last Admin: 07/27/17 09:24 Dose: 300 mg Guaifenesin (Mucinex La) 600 mg PO BID [facility] Last Admin: 07/27/17 11:29 Dose: Not Given Guaifenesin (Robitussin) 200 mg PO Q4H PRN PRN Reason: Cough and congestion Last Admin: 07/27/17 09:24 Dose: 200 mg Hydralazine HCl (Apresoline) 50 mg PO BID [facility] Last Admin: 07/27/17 09:25 Dose: 50 mg Azithromycin 500 mg/ Dextrose 250 mls @ 166.667 mls/hr IVPB Q24H [facility] Last Admin: 07/26/17 20:05 Dose: 166.667 mls/hr Ceftriaxone Sodium 1 gm/ (Sodium Chloride) 100 mls @ 200 mls/hr IVPB Q24H [facility] Last Admin: 07/27/17 09:32 Dose: 200 mls/hr Prednisone (Prednisone Tab) 40 mg PO DAILY [facility] Last Admin: 07/27/17 09:25 Dose: 40 mg - Labs Labs: 07/27/17 06:55 07/27/17 06:55
--- NOTE | 2017-07-27 21:46 | CARD ---
APPROVED REPORT EKG Measurement Heart [id number] <Conclusion> Atrial fibrillation with premature ventricular or aberrantly conducted complexes Rightward axis ST & T wave abnormality, nonspecific. Abnormal ECG
--- NOTE | 2017-07-27 21:50 | CARD ---
APPROVED REPORT EKG Measurement Heart [id number] <Conclusion> Atrial fibrillation Left posterior fascicular block ST & T wave abnormality, nonspecific. Possible Rt arm - Rt leg reversal PLEASE REPEAT Abnormal ECG
--- NOTE | 2017-07-28 03:59 | CARD ---
APPROVED REPORT EKG Measurement Heart [id number] <Conclusion> Atrial fibrillation with premature ventricular or aberrantly conducted complexes Nonspecific intraventricular block Cannot rule out Septal infarct, age undetermined Abnormal ECG
[2017-07-29 12:57] VITALS: O2SAT 99
== END 2017-07-27 18:24 | disposition home or self-care (01) ==
LOC: C.ER 11:29 → C.9E 16:11 → C.6T 20:03
PROVIDERS: ADMIT Internal Medicine Nephrology; ATTEND Internal Medicine Nephrology
DX: J40 Bronchitis, not specified as acute or chronic (principal); D64.9 Anemia, unspecified; E78.00 Pure hypercholesterolemia, unspecified; I13.0 Hypertensive heart and chronic kidney disease with heart failure and stage 1 through stage 4 chronic kidney disease, or unspecified chronic kidney disease; I25.10 Atherosclerotic heart disease of native coronary artery without angina pectoris; I50.9 Heart failure, unspecified; J44.9 Chronic obstructive pulmonary disease, unspecified; N18.9 Chronic kidney disease, unspecified; Z95.0 Presence of cardiac pacemaker; Z95.5 Presence of coronary angioplasty implant and graft; Z87.891 Personal history of nicotine dependence; I48.91 Unspecified atrial fibrillation

== ENCOUNTER 2018-07-27 12:10 | Observation (INO) | payer MEDICARE ==
[2018-07-27 12:10] VITALS: PULSE 76
[2018-07-27 12:21] VITALS: BMI 24.3
[2018-07-27] MEDS ORDERED: Sodium Chloride 0.9% 500 ML IV STA (12:32)
[2018-07-27] MEDS ORDERED: Sodium Chloride 0.9% 500 ML IV ONE (12:47)
--- NOTE | 2018-07-27 13:24 | RAD ---
HISTORY: fever/cough COMPARISON: Chest x-ray performed 07/25/17 TECHNIQUE: Chest PA and lateral FINDINGS: Right IJ approach MediPort terminates at the SVC. LUNGS: The costophrenic angles are excluded from view. No focal consolidation. Please note that chest x-ray has limited sensitivity for the detection of pulmonary masses. PLEURA: No significant pleural effusion identified. No definite pneumothorax . CARDIOVASCULAR: Single lead left-sided AICD. Heart size appears within normal limits. Atherosclerotic calcifications the aortic knob. Prosthetic cardiac valve. OSSEOUS STRUCTURES: Degenerative changes of the spine. VISUALIZED UPPER ABDOMEN: Elevation/eventration of the right hemidiaphragm. OTHER FINDINGS: None. IMPRESSION: Right-sided MediPort. Single lead left-sided AICD. No focal consolidation.
[2018-07-27 13:31] LABS: BASO % 0.2 % (0.0-2.0); EOS % 0.8 % (0.0-4.0); HEMOGLOBIN 13.3 g/dL (12.0-18.0); LYMPH # 2.2 K/uL (1.0-4.3); LYMPH % 38.9 % (20.0-40.0); MEAN CORPUSCULAR HEMOGLOBIN 30.2 pg (27.0-31.0); MEAN CORPUSCULAR HGB CONC 33.4 g/dL (33.0-37.0); MEAN PLATELET VOLUME 8.4 fL (7.2-11.7); MONO # 0.7 K/uL (0.0-0.8); MONO % 11.7 % (0.0-10.0); NEUT # 2.8 K/uL (1.8-7.0); NEUT % 48.4 % (50.0-75.0); RBC 4.39 Mil/uL (4.40-5.90); RED CELL DISTRIBUTION WIDTH 13.8 % (11.5-14.5); WHITE BLOOD COUNT 5.7 K/uL (4.8-10.8)
[2018-07-27 13:38] LABS: MEAN CELL VOLUME 90.5 fL (80.0-94.0)
[2018-07-27 13:42] LABS: ALB/GLOB RATIO 1.9 (1.0-2.1); ALBUMIN 4.2 g/dL (3.5-5.0); CALCIUM 8.6 mg/dl (8.6-10.4)
--- NOTE | 2018-07-27 14:41 | C.PDOC ---
History Of Present Illness 77yo male, with history of hypertension, high cholesterol, CAD, cardiac arrhythmia, pacemaker, comes to ER reporting he has not been feeling well for the past 1 week. Patient reports tactile fever, cough, congestion and sore throat. He also reports associated generalized malaise, weakness and near syncope episode. Otherwise denies any chest pain, vomiting or abdominal pain. No additional complaints. Time Seen by Provider: 07/27/18 12:20 Chief Complaint (Nursing): Weakness/Neurological Deficit History Per: Patient History/Exam Limitations: no limitations Current Symptoms Are (Timing): Still Present Location Of Pain: Diffuse Myalgias Associated Symptoms: Fever (tactile), Sore Throat, Cough. denies: Nausea, Vomiting, Diarrhea Additional History Per: Patient Past Medical History Reviewed: Historical Data, Nursing Documentation, Vital Signs Vital Signs: Last Vital Signs Temp 97.9 F 07/27/18 12:23 Pulse 61 07/27/18 12:23 Resp 22 07/27/18 12:23 BP 137/79 07/27/18 12:23 Pulse Ox 98 07/27/18 12:23 - Medical History PMH: Anemia (waldenstein anemia), Atrial Fibrillation, CAD, Cardia Arrhythmia, CHF, COPD, Gastrointestinal Ulcer, HTN, Hypercholesterolemia, Hyperlipidemia, Malignancy (Larynx and Vocal Cords), Chronic Kidney Disease Surgical History: Endoscopy, Pacemaker - [facility] Procedures ANGIOPLASTY OF OTHER NON-CORONARY VESSEL(S) (02/13/14) CLOSED ENDOSCOPIC BIOPSY OF LARGE INTESTINE (09/08/14) CONTINUOUS INVASIVE MECHANICAL VENTILATION <96 CONSEC HRS (03/06/15) CONTRAST ARTERIOGRAM-LEG (02/13/14) DX ULTRASOUND-HEART (08/24/13) ENDOSC POLYPECTOMY OF LG INTEST (03/03/13) ESOPHAGOGASTRODUODENOSCOPY [EGD] W/CLOSED BIOPSY (09/08/14) EXCISION OF DESCENDING COLON, ENDO, DIAGN (04/05/15) EXCISION OF STOMACH, ENDO, DIAGN (04/05/15) FUSION/REFUS OF 4-8 VERTEBRAE (05/02/13) INFLUENZA VACCINATION (05/26/14) INSEJ [id number] PERIPHERAL NON-CORONARY VES STENT(S) (02/13/14) INSERT ENDOTRACHEAL TUBE (03/06/15) INSERTION OF FOUR OR MORE VASCULAR STENTS (02/13/14) INSERTION OF TOTALLY IMPLANTABLE VASC ACCESS DEVIC (09/29/14) INSPECTION OF UPPER INTESTINAL TRACT, ENDO (04/05/15) OCCUPATIONAL THERAPY (03/13/13) OTH CERVICAL FUSION OF POSTERIOR COLUMN, POSTERIOR TECHNIQUE (05/02/13) OTHER ENDOSCOPY OF SM INTEST (03/03/13) PACKED CELL TRANSFUSION (03/06/15) PHYSICAL THERAPY NEC (03/13/13) PROCEDURE ON SINGLE VESSEL (02/13/14) RADIOTHERAPEUT PROC NEC (03/13/13) SPINAL CANAL EXPLOR NEC (05/02/13) THERAPEUTIC ERYTHROCYTAPHERESIS (08/19/14) TRANSFUSE NONAUT RED BLOOD CELLS IN PERIPH VEIN, PERC (04/05/15) ULTRASONOGRAPHY OF RIGHT AND LEFT HEART, TRANSESOPHAGEAL (11/09/15) VACCINATION NEC (05/26/14) Family History: States: No Known Family Hx - Social History Hx Tobacco Use: No Hx Alcohol Use: No Hx Substance Use: No - Immunization History Hx Tetanus Toxoid Vaccination: No Hx Influenza Vaccination: No Hx Pneumococcal Vaccination: No Review Of Systems Except As Marked, All Systems Reviewed And Found Negative. Constitutional: Positive for: Fever Cardiovascular: Negative for: Chest Pain Respiratory: Positive for: Cough. Negative for: Sputum Gastrointestinal: Negative for: Vomiting Musculoskeletal: Negative for: Neck Pain Neurological: Negative for: Weakness, Numbness Physical Exam - Physical Exam Appears: Non-toxic Skin: Normal Color, Warm, Dry Head: Atraumatic, Normacephalic Eye(s): bilateral: Normal Inspection Oral Mucosa: Moist Throat: No Erythema Neck: Normal ROM, Supple Chest: Symmetrical Cardiovascular: Rhythm Regular Respiratory: Normal Breath Sounds, No Rales, No Rhonchi, No Wheezing Gastrointestinal/Abdominal: Normal Exam, Soft, No Tenderness Back: Normal Inspection Extremity: Normal ROM, No Pedal Edema Neurological/Psych: Oriented x3 ED Course And Treatment - Laboratory Results Result Diagrams: 07/27/18 13:27 07/27/18 13:27 Lab Results: Total Bilirubin 0.6 mg/dL (0.2-1.3) 07/27/18 13:27 AST 30 U/L (17-59) 07/27/18 13:27 ALT 21 U/L (21-72) 07/27/18 13:27 Alkaline Phosphatase 134 U/L (38-126) H 07/27/18 13:27 Total Protein 6.4 g/dL (6.3-8.3) 07/27/18 13:27 Albumin 4.2 g/dL (3.5-5.0) 07/27/18 13:27 Globulin 2.2 gm/dL (2.2-3.9) 07/27/18 13:27 Albumin/Globulin Ratio 1.9 (1.0-2.1) 07/27/18 13:27 ECG: Interpreted By Me, Viewed By Me ECG Rhythm: Atrial Fibrillation, V Paced (v-paced complexes), L BBB (incomplete) Rate From EC O2 Sat by Pulse Oximetry: 98 (RA) Pulse Ox Interpretation: Normal Progress Note: Labs, rapid flu, urinalysis and CXR ordered. Patient given IV fluids. CXR reviewed, no acute disease. Labs reviewed and no clinically significant abnormalities noted. [id number] Lei, who is requesting IV Avelox and to admit patient under his service to [facility] for observation. Disposition - Disposition Disposition: HOSPITALIZED Disposition Time: 16:01 Condition: FAIR - Clinical Impression Clinical Impression: Near syncope, Weakness, Bronchitis - PA / ASSET RECOVERY SPECIALIST / Resident Statement MD/DO has reviewed & agrees with the documentation as recorded. - Scribe Statement The provider has reviewed the documentation as recorded by the Ady Mckenzie Provider Attestation: All medical record entries made by the Pioibabraham were at my direction and personally dictated by me. I have reviewed the chart and agree that the record accurately reflects my personal performance of the history, physical exam, medical decision making, and the department course for this patient. I have also personally directed, reviewed, and agree with the discharge instructions and disposition. Decision To Admit - Pt Status Changed To: Hospital Disposition Of: Observation - . Bed Request Type: Telemetry Admitting Physician: Radha Lei Patient Diagnosis: Near syncope, Weakness, Bronchitis
[2018-07-27] MEDS ORDERED: Moxifloxacin IV 400mg/250ml NS 400 MG/250 ML BAG IV STA (14:46)
[2018-07-27] MEDS ORDERED: Moxifloxacin IV 400mg/250ml NS 400 MG/250 ML BAG IVPB ONE (14:56)
[2018-07-27 15:07] LABS: SQUAMOUS EPITHIAL < 1 /hpf (0-5); URINE BILIRUBIN NEGATIVE (NEGATIVE); URINE BLOOD NEGATIVE (NEGATIVE); URINE CLARITY Clear (Clear); URINE COLOR Yellow (YELLOW); URINE GLUCOSE (UA) NORMAL (Normal); URINE LEUKOCYTE ESTERASE NEG Leu/uL (Negative); URINE PROTEIN 3+ mg/dL (NEGATIVE); URINE UROBILINOGEN NORMAL mg/dL (0.2-1.0)
--- NOTE | 2018-07-27 17:22 | CP.PCM.HP ---
History of Present Illness - History of Present Illness History of Present Illness: Chief complaint: Came to the emergency room with increasing cough and shortness of breath. HPI: Patient is a 77-year-old male with a history of hypertension, high cholesterol, peripheral vascular disease, history of atrial fibrillation, aortic stenosis, status post a transaortic valve repair, COPD, Waldenstrm macroglobulinemia, his tory of anemia and recurrent GI bleed in the past. Patient recently was traveling to [facility]. While he was there he was doing well. But after he returned to [place], he started having increasing cough. Symptoms got worse. Increasing cough, associate with the shortness of breath and wheezing noted. He was also having some mucus production, which was thick yellow discoloration. He denies any fever. No chills noted, but cough associated with shortness of breath noted. He was not feeling well, poor appetite and poor intake noted. Patient is being seen by forestry supervisor, on and off oncologist, as well as green end department supervisor. Past medical history: Systolic heart failure, anemia, history of throat cancer, status post radiation, history of hypertension, high cholesterol, atrial fibrillation, COPD, W aldenstrm macroglobulinemia, GI bleed Past surgical history: Transaortic valvular repair, stent, vocal cord tumor removal, multiple endoscopies. Family history: Parents of natural causes Siblings healthy One son has epilepsy Social history: Occasionally drinks alcohol. 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 With the mucus production, minimal chest pain Review of system: And shortness of breath present with the cough. Cough and wheezing noted. Was also not feeling well, poor appetite noted No headache. No GI bleed. Currently using cane for walking. Patient wanted to visiting his country [place]. On examination: Vital signs stable. Chest good air entry bilaterally. Regular heart sounds Nontender abdomen Extremities no pedal edema Patient had EKG done by the forestry supervisor. Known to have atrial fibrillation, with controlled ventricular rate. Echocardiogram showing evidence of ejection fraction 35%. Which was done recently in March 2017 Chest x-ray nonspecific. Cardiac enzymes are negative Elevated proBNP minimally noted Assessment and recommendation: Patient is a 77-year-old male with a history of hypertension, high cholesterol, peripheral vascular disease, history of atrial fibrillation, aortic stenosis, status post a transaortic valve repair, COPD, Waldenstrm macroglobulinemia, history of anemia and recurrent GI bleed in the past. He is not on any anticoagulation as aspirin because of the ongoing GI bleed in the past. Now having possible acute exacerbation of chronic bronchitis. Patient also has a possible fluid overload status. Currently he is receiving antibiotic. Low-dose corticosteroid intravenously. Bronchodilators. DVT and GI prophylaxis. We will continue to monitor physical therapy and will follow the patient Present on Admission - Present on Admission Any Indicators Present on Admission: No History of DVT/PE: No History of Uncontrolled Diabetes: No Urinary Catheter: No Decubitus Ulcer Present: No Past Patient History - Infectious Disease Hx of Infectious Diseases: None - Tetanus Immunizations Tetanus Immunization: Unknown - Past Medical History & Family History Past Medical History?: Yes - Past Social History Smoking Status: Former Smoker - CARDIAC Hx Atrial Fibrillation: Yes Hx Cardia Arrhythmia: Yes Hx Congestive Heart Failure: Yes Hx Hypercholesterolemia: Yes Hx Hypertension: Yes Hx Pacemaker: Yes - PULMONARY Hx Chronic Obstructive Pulmonary Disease (COPD): Yes - NEUROLOGICAL Hx Neurological Disorder: No - HEENT Hx HEENT Problems: Yes Other/Comment: HX VOCAL CORD tumor REMOVED MAR 2013 - RENAL Hx Chronic Kidney Disease: Yes - ENDOCRINE/METABOLIC Hx Endocrine Disorders: No - HEMATOLOGICAL/ONCOLOGICAL Hx Anemia: Yes (waldenstein anemia) - INTEGUMENTARY Hx Dermatological Problems: No - MUSCULOSKELETAL/RHEUMATOLOGICAL Hx Musculoskeletal Disorders: Yes Hx Gout: Yes - GASTROINTESTINAL Hx Gastrointestinal Disorders: No - GENITOURINARY/GYNECOLOGICAL Hx Genitourinary Disorders: No - PSYCHIATRIC Hx Substance Use: No - SURGICAL HISTORY Hx Surgeries: Yes 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 LARYNGOSCOPY REMOVAL VOCAL CORD TUMOR - ANESTHESIA Hx Anesthesia: Yes Hx Anesthesia Reactions: No Hx Malignant Hyperthermia: No Meds Allergies/Adverse Reactions: Allergies Allergy/AdvReac Type Severity Reaction Status Date / Time Penicillins Allergy RASH Verified 07/27/18 12:20 Results - Vital Signs Recent Vital Signs: Last Vital Signs Temp 98.8 F 07/27/18 16:29 Pulse 68 07/27/18 16:29 Resp 18 07/27/18 16:29 BP 140/72 07/27/18 16:29 Pulse Ox 98 07/27/18 16:57 - Labs Result Diagrams: 07/28/18 07:02 07/28/18 07:02 Labs: Laboratory Results - last 24 hr 07/27/18 07/27/18 07/27/18 13:00 13:27 13:27 WBC 5.7 RBC 4.39 L Hgb 13.3 Hct 39.8 MCV 90.5 D MCH 30.2 MCHC 33.4 RDW 13.8 Plt Count 209 MPV 8.4 Neut % (Auto) 48.4 L Lymph % (Auto) 38.9 Cass % (Auto) 11.7 H Eos % (Auto) 0.8 Baso % (Auto) 0.2 Neut # (Auto) 2.8 Lymph # (Auto) 2.2 Cass # (Auto) 0.7 Eos # (Auto) 0.0 Baso # (Auto) 0.0 Sodium 137 Potassium 4.6 Chloride 106 Carbon Dioxide 20 L Anion Gap 15 BUN 43 H Creatinine 2.6 H Est GFR ( Amer) 29 Est GFR (Non-Af Amer) 24 Random Glucose 98 Calcium 8.6 Total Bilirubin 0.6 AST 30 ALT 21 Alkaline Phosphatase 134 H Total Protein 6.4 Albumin 4.2 Globulin 2.2 Albumin/Globulin Ratio 1.9 Urine Color Urine Clarity Urine pH Ur Specific [place] Urine Protein Urine Glucose (UA) Urine Ketones Urine Blood Urine Nitrate Urine Bilirubin Urine Urobilinogen Ur Leukocyte Esterase Urine WBC (Auto) Urine RBC (Auto) Ur Squamous Epith Cells Influenza Typ A,B (EIA) Negative for flu a/b 07/27/18 15:00 WBC RBC Hgb Hct MCV MCH MCHC RDW Plt Count MPV Neut % (Auto) Lymph % (Auto) Cass % (Auto) Eos % (Auto) Baso % (Auto) Neut # (Auto) Lymph # (Auto) Cass # (Auto) Eos # (Auto) Baso # (Auto) Sodium Potassium Chloride Carbon Dioxide Anion Gap BUN Creatinine Est GFR ( Amer) Est GFR (Non-Af Amer) Random Glucose Calcium Total Bilirubin AST ALT Alkaline Phosphatase Total Protein Albumin Globulin Albumin/Globulin Ratio Urine Color Yellow Urine Clarity Clear Urine pH 5.0 Ur Specific [place] 1.012 Urine Protein 3+ H Urine Glucose (UA) Normal Urine Ketones Negative Urine Blood Negative Urine Nitrate Negative Urine Bilirubin Negative Urine Urobilinogen Normal Ur Leukocyte Esterase Neg Urine WBC (Auto) 1 Urine RBC (Auto) < 1 Ur Squamous Epith Cells < 1 Influenza Typ A,B (EIA)
[2018-07-28] MEDS: Albuterol-Ipratrop 3 mg / 0.5 (3 ml) UD INH SCH ×4 (01:00→19:42)
[2018-07-28 07:19] LABS: HEMOGLOBIN 12.8 g/dL (12.0-18.0); MEAN CELL VOLUME 89.6 fL (80.0-94.0); MEAN CORPUSCULAR HEMOGLOBIN 29.9 pg (27.0-31.0); MEAN CORPUSCULAR HGB CONC 33.4 g/dL (33.0-37.0); MEAN PLATELET VOLUME 8.2 fL (7.2-11.7); RBC 4.27 Mil/uL (4.40-5.90); RED CELL DISTRIBUTION WIDTH 13.9 % (11.5-14.5); WHITE BLOOD COUNT 5.2 K/uL (4.8-10.8)
[2018-07-28 07:27] LABS: ALB/GLOB RATIO 1.8 (1.0-2.1); ALBUMIN 3.8 g/dL (3.5-5.0); CALCIUM 8.7 mg/dl (8.6-10.4)
[2018-07-28] MEDS ORDERED: Losartan 12.5 MG TAB PO SCH (10:00)
[2018-07-28] MEDS: Moxifloxacin IV 400mg/250ml NS 400 MG/250 ML BAG IVPB SCH (13:27)
[2018-07-29] MEDS: Albuterol-Ipratrop 3 mg / 0.5 (3 ml) UD INH SCH ×3 (07:43→20:02)
[2018-07-29] MEDS: Moxifloxacin IV 400mg/250ml NS 400 MG/250 ML BAG IVPB SCH (12:25)
--- NOTE | 2018-07-29 13:16 | CP.PCM.PN ---
Subjective - Date & Time of Evaluation Date of Evaluation: 07/28/18 Time of Evaluation: 13:15 - Subjective Subjective: Patient is feeling slightly better, comfortable. Not in any distress. Patient had a few episodes of atrial flutter. Also there was an episodes of V. tach in the monitor. Episodes of bradycardia. On examination vital signs stable Chest good air entry regular [place] nontender abdomen no pedal edema Patient is a 77-year-old male with a history of hypertension, high cholesterol, peripheral vascular disease, history of atrial fibrillation, aortic stenosis, status post a transaortic valve repair, COPD, Waldenstrm macroglobulinemia, history of anemia and recurrent GI bleed in the past. On antibiotic and will follow the patient we will continue to monitor. Cardiology evaluation. Objective - Vital Signs/Intake and Output Vital Signs (last 24 hours): Temp Pulse Resp BP Pulse Ox 98.7 F 77 18 148/76 98 07/29/18 07:00 07/29/18 08:16 07/29/18 07:00 07/29/18 09:47 07/29/18 08:23 - Medications Medications: Current Medications Albuterol/Ipratropium (Duoneb 3 Mg/0.5 Mg (3 Ml) Ud) 3 ml INH RQ6 [facility] Last Admin: 07/28/18 19:42 Dose: 3 ml Amlodipine Besylate (Norvasc) 10 mg PO DAILY [facility] Last Admin: 07/29/18 09:45 Dose: 10 mg Aspirin (Ecotrin) 81 mg PO DAILY [facility] Last Admin: 07/29/18 09:45 Dose: 81 mg Carvedilol (Coreg) 6.25 mg PO BID [facility] Last Admin: 07/29/18 09:45 Dose: Not Given Famotidine (Pepcid) 20 mg PO DAILY [facility] Last Admin: 07/29/18 09:45 Dose: 20 mg Gabapentin (Neurontin) 300 mg PO BID [facility] Last Admin: 07/29/18 09:45 Dose: 300 mg Heparin Sodium (Porcine) (Heparin) 5,000 units SC Q12 [facility] Last Admin: 07/29/18 09:46 Dose: Not Given Moxifloxacin HCl (Avelox Iv 400mg/250ml Ns) 400 mg in 250 mls @ 167 mls/hr IVPB Q24H [facility]; Protocol Last Admin: 07/29/18 12:25 Dose: 167 mls/hr Losartan Potassium (Cozaar) 25 mg PO DAILY [facility] Last Admin: 07/29/18 09:45 Dose: 25 mg - Labs Labs: 07/28/18 07:02 07/28/18 07:02
--- NOTE | 2018-07-29 13:17 | CP.PCM.PN ---
Subjective - Date & Time of Evaluation Date of Evaluation: 07/29/18 Time of Evaluation: 13:16 - Subjective Subjective: Patient is currently lying down on the bed. Not in any distress. Able to stand up and walk. On examination: Vital signs stable. Chest good air entry Regular [place] Currently patient has a bradycardia. Pacemaker rhythm. The pacemaker likely AICD site with a base rate of around 45. We will possibly get the check the pacemaker. Cardiology evaluation and follow-up possible discharge plan tomorrow Objective - Vital Signs/Intake and Output Vital Signs (last 24 hours): Temp Pulse Resp BP Pulse Ox 98.7 F 77 18 148/76 98 07/29/18 07:00 07/29/18 08:16 07/29/18 07:00 07/29/18 09:47 07/29/18 08:23 - Medications Medications: Current Medications Albuterol/Ipratropium (Duoneb 3 Mg/0.5 Mg (3 Ml) Ud) 3 ml INH RQ6 [facility] Last Admin: 07/28/18 19:42 Dose: 3 ml Amlodipine Besylate (Norvasc) 10 mg PO DAILY [facility] Last Admin: 07/29/18 09:45 Dose: 10 mg Aspirin (Ecotrin) 81 mg PO DAILY [facility] Last Admin: 07/29/18 09:45 Dose: 81 mg Carvedilol (Coreg) 6.25 mg PO BID [facility] Last Admin: 07/29/18 09:45 Dose: Not Given Famotidine (Pepcid) 20 mg PO DAILY [facility] Last Admin: 07/29/18 09:45 Dose: 20 mg Gabapentin (Neurontin) 300 mg PO BID [facility] Last Admin: 07/29/18 09:45 Dose: 300 mg Heparin Sodium (Porcine) (Heparin) 5,000 units SC Q12 [facility] Last Admin: 07/29/18 09:46 Dose: Not Given Moxifloxacin HCl (Avelox Iv 400mg/250ml Ns) 400 mg in 250 mls @ 167 mls/hr IVPB Q24H [facility]; Protocol Last Admin: 07/29/18 12:25 Dose: 167 mls/hr Losartan Potassium (Cozaar) 25 mg PO DAILY [facility] Last Admin: 07/29/18 09:45 Dose: 25 mg - Labs Labs: 07/28/18 07:02 07/28/18 07:02
[2018-07-29 20:40] VITALS: RESP 20
--- NOTE | 2018-07-29 21:29 | CP.PCM.CON ---
History of Present Illness - History of Present Illness History of Present Illness: CC: Dyspnea 77yo male, with history of hypertension, high cholesterol, CAD, cardiac arrhythmia, pacemaker, comes to ER reporting he has not been feeling well for the past 1 week. Patient reports tactile fever, cough, congestion and sore throat. He also reports associated generalized malaise, weakness and near syncope episode. Otherwise denies any chest pain, vomiting or abdominal pain. No additional complaints. Chief Complaint (Nursing): Weakness/Neurological Deficit History Per: Patient History/Exam Limitations: no limitations Current Symptoms Are (Timing): Still Present Location Of Pain: Diffuse Myalgias Associated Symptoms: Fever (tactile), Sore Throat, Cough. denies: Nausea, Vomiting, Diarrhea Additional History Per: Patient Past Medical History Reviewed: Historical Data, Nursing Documentation, Vital Signs Vital Signs: Last Vital Signs Temp 97.9 F 07/27/18 12:23 Pulse 61 07/27/18 12:23 Resp 22 07/27/18 12:23 BP 137/79 07/27/18 12:23 Pulse Ox 98 07/27/18 12:23 - Medical History PMH: Anemia (waldenstein anemia), Atrial Fibrillation, CAD, Cardia Arrhythmia, CHF, COPD, Gastrointestinal Ulcer, HTN, Hypercholesterolemia, Hyperlipidemia, Malignancy (Larynx and Vocal Cords), Chronic Kidney Disease Surgical History: Endoscopy, Pacemaker - [facility] Procedures ANGIOPLASTY OF OTHER NON-CORONARY VESSEL(S) (02/13/14) CLOSED ENDOSCOPIC BIOPSY OF LARGE INTESTINE (09/08/14) CONTINUOUS INVASIVE MECHANICAL VENTILATION <96 CONSEC HRS (03/06/15) CONTRAST ARTERIOGRAM-LEG (02/13/14) DX ULTRASOUND-HEART (08/24/13) ENDOSC POLYPECTOMY OF LG INTEST (03/03/13) ESOPHAGOGASTRODUODENOSCOPY [EGD] W/CLOSED BIOPSY (09/08/14) EXCISION OF DESCENDING COLON, ENDO, DIAGN (04/05/15) EXCISION OF STOMACH, ENDO, DIAGN (04/05/15) FUSION/REFUS OF 4-8 VERTEBRAE (05/02/13) INFLUENZA VACCINATION (05/26/14) INSEJ [id number] PERIPHERAL NON-CORONARY VES STENT(S) (02/13/14) INSERT ENDOTRACHEAL TUBE (03/06/15) INSERTION OF FOUR OR MORE VASCULAR STENTS (02/13/14) INSERTION OF TOTALLY IMPLANTABLE VASC ACCESS DEVIC (09/29/14) INSPECTION OF UPPER INTESTINAL TRACT, ENDO (04/05/15) OCCUPATIONAL THERAPY (03/13/13) OTH CERVICAL FUSION OF POSTERIOR COLUMN, POSTERIOR TECHNIQUE (05/02/13) OTHER ENDOSCOPY OF SM INTEST (03/03/13) PACKED CELL TRANSFUSION (03/06/15) PHYSICAL THERAPY NEC (03/13/13) PROCEDURE ON SINGLE VESSEL (02/13/14) RADIOTHERAPEUT PROC NEC (03/13/13) SPINAL CANAL EXPLOR NEC (05/02/13) THERAPEUTIC ERYTHROCYTAPHERESIS (08/19/14) TRANSFUSE NONAUT RED BLOOD CELLS IN PERIPH VEIN, PERC (04/05/15) ULTRASONOGRAPHY OF RIGHT AND LEFT HEART, TRANSESOPHAGEAL (11/09/15) VACCINATION NEC (05/26/14) Family History: States: No Known Family Hx - Social History Hx Tobacco Use: No Hx Alcohol Use: No Hx Substance Use: No - Immunization History Hx Tetanus Toxoid Vaccination: No Hx Influenza Vaccination: No Hx Pneumococcal Vaccination: No Review Of Systems Except As Marked, All Systems Reviewed And Found Negative. Constitutional: Positive for: Fever Cardiovascular: Negative for: Chest Pain Respiratory: Positive for: Cough. Negative for: Sputum Gastrointestinal: Negative for: Vomiting Musculoskeletal: Negative for: Neck Pain Neurological: Negative for: Weakness, Numbness Physical Exam - Physical Exam Appears: Non-toxic Skin: Normal Color, Warm, Dry Head: Atraumatic, Normacephalic Eye(s): bilateral: Normal Inspection Oral Mucosa: Moist Throat: No Erythema Neck: Normal ROM, Supple Chest: Symmetrical Cardiovascular: Rhythm Regular Respiratory: Normal Breath Sounds, No Rales, No Rhonchi, No Wheezing Gastrointestinal/Abdominal: Normal Exam, Soft, No Tenderness Back: Normal Inspection Extremity: Normal ROM, No Pedal Edema Neurological/Psych: Oriented x3 Past Patient History - Infectious Disease Hx of Infectious Diseases: None - Tetanus Immunizations Tetanus Immunization: Unknown - Past Medical History & Family History Past Medical History?: Yes - Past Social History Smoking Status: Former Smoker - CARDIAC Hx Atrial Fibrillation: Yes Hx Cardia Arrhythmia: Yes Hx Congestive Heart Failure: Yes Hx Hypercholesterolemia: Yes Hx Hypertension: Yes Hx Pacemaker: Yes - PULMONARY Hx Chronic Obstructive Pulmonary Disease (COPD): Yes - NEUROLOGICAL Hx Neurological Disorder: No - HEENT Hx HEENT Problems: Yes Other/Comment: HX VOCAL CORD tumor REMOVED MAR 2013 - RENAL Hx Chronic Kidney Disease: Yes - ENDOCRINE/METABOLIC Hx Endocrine Disorders: No - HEMATOLOGICAL/ONCOLOGICAL Hx Anemia: Yes (waldenstein anemia) - INTEGUMENTARY Hx Dermatological Problems: No - MUSCULOSKELETAL/RHEUMATOLOGICAL Hx Musculoskeletal Disorders: Yes Hx Gout: Yes - GASTROINTESTINAL Hx Gastrointestinal Disorders: No - GENITOURINARY/GYNECOLOGICAL Hx Genitourinary Disorders: No - PSYCHIATRIC Hx Substance Use: No - SURGICAL HISTORY Hx Surgeries: Yes 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 LARYNGOSCOPY REMOVAL VOCAL CORD TUMOR - ANESTHESIA Hx Anesthesia: Yes Hx Anesthesia Reactions: No Hx Malignant Hyperthermia: No Meds Allergies/Adverse Reactions: Allergies Allergy/AdvReac Type Severity Reaction Status Date / Time Penicillins Allergy RASH Verified 07/27/18 12:20 - Medications Medications: Current Medications Albuterol/Ipratropium (Duoneb 3 Mg/0.5 Mg (3 Ml) Ud) 3 ml INH RQ6 [facility] Last Admin: 07/29/18 20:02 Dose: 3 ml Amlodipine Besylate (Norvasc) 10 mg PO DAILY [facility] Last Admin: 07/29/18 09:45 Dose: 10 mg Aspirin (Ecotrin) 81 mg PO DAILY [facility] Last Admin: 07/29/18 09:45 Dose: 81 mg Carvedilol (Coreg) 3.125 mg PO BID [facility] Last Admin: 07/29/18 18:45 Dose: Not Given Famotidine (Pepcid) 20 mg PO DAILY [facility] Last Admin: 07/29/18 09:45 Dose: 20 mg Gabapentin (Neurontin) 300 mg PO BID [facility] Last Admin: 07/29/18 17:43 Dose: 300 mg Heparin Sodium (Porcine) (Heparin) 5,000 units SC Q12 [facility] Last Admin: 07/29/18 21:07 Dose: Not Given Moxifloxacin HCl (Avelox Iv 400mg/250ml Ns) 400 mg in 250 mls @ 167 mls/hr IVPB Q24H [facility]; Protocol Last Admin: 07/29/18 12:25 Dose: 167 mls/hr Losartan Potassium (Cozaar) 100 mg PO DAILY [facility] Last Admin: 07/29/18 18:49 Dose: 100 mg Results - Vital Signs Recent Vital Signs: Last Vital Signs Temp 97.5 F L 07/29/18 15:00 Pulse 44 L 07/29/18 16:00 Resp 20 07/29/18 15:00 BP 150/79 07/29/18 15:00 Pulse Ox 98 07/29/18 16:00 - Labs Result Diagrams: 07/28/18 07:02 07/28/18 07:02 Assessment & Plan - Assessment and Plan (Free Text) Assessment: Assessment/Plan (1) Dyspnea Pneumonis Vs. CHF On Antibiotics (2) Acute on Chronic Systolic CHF/Severe /A Fib Acute on Chronic Systolic CHF Lasix 20mg daily CHF therapy with B blockers, ROBERT I Not on AC due to hx of bleeding (3) Anemia-Stable Current Visit: Yes Status: Acute Comment: Due to Waldenstrm's macroglobulinemia (4) S/P TAVR for Critical Current Visit: Yes Status: Acute Comment: Check ECHO (5) Waldenstroms macroglobulinemia Current Visit: No Status: Acute Comment: h/o multiple transfusions Medical management (6) CRI Medical Management
[2018-07-30] MEDS: Albuterol-Ipratrop 3 mg / 0.5 (3 ml) UD INH SCH ×3 (02:00→13:28)
[2018-07-30 07:43] LABS: BASO % 0.3 % (0.0-2.0); EOS # 0.2 K/uL (0.0-0.7); EOS % 3.1 % (0.0-4.0); HEMOGLOBIN 12.3 g/dL (12.0-18.0); LYMPH % 29.1 % (20.0-40.0); MEAN CELL VOLUME 90.1 fL (80.0-94.0); MEAN CORPUSCULAR HEMOGLOBIN 29.9 pg (27.0-31.0); MEAN CORPUSCULAR HGB CONC 33.2 g/dL (33.0-37.0); MEAN PLATELET VOLUME 8.2 fL (7.2-11.7); MONO # 0.7 K/uL (0.0-0.8); MONO % 10.6 % (0.0-10.0); NEUT # 3.8 K/uL (1.8-7.0); NEUT % 56.9 % (50.0-75.0); RBC 4.12 Mil/uL (4.40-5.90); RED CELL DISTRIBUTION WIDTH 13.8 % (11.5-14.5); WHITE BLOOD COUNT 6.7 K/uL (4.8-10.8)
[2018-07-30 08:11] LABS: CK-MB 1.81 ng/mL (0.0-3.38); TROPONIN I 0.035 ng/mL (0.00-0.120)
[2018-07-30 08:14] LABS: ALB/GLOB RATIO 1.8 (1.0-2.1); ALBUMIN 3.7 g/dL (3.5-5.0); CALCIUM 8.6 mg/dl (8.6-10.4)
[2018-07-30 08:29] VITALS: BP 170/66; PULSE 73; TEMP 98.8; O2SAT 97
[2018-07-30] MEDS: Moxifloxacin IV 400mg/250ml NS 400 MG/250 ML BAG IVPB SCH ×2 (12:42→13:34)
--- NOTE | 2018-07-30 17:44 | CP.PCM.PN ---
<Lisa Dukes - Last Filed: 07/30/18 17:41> Subjective - Date & Time of Evaluation Date of Evaluation: 07/30/18 Time of Evaluation: 09:00 - Subjective Subjective: Cardiology Progress Note for Dr. Zavala: Patient was seen and examined at bedside in the AM. Patient states he is feeling much better today after he received medication during his hospital stay. Objective - Vital Signs/Intake and Output Vital Signs (last 24 hours): Temp Pulse Resp BP Pulse Ox 98.8 F 73 20 170/66 H 97 07/30/18 08:00 07/30/18 08:00 07/30/18 08:00 07/30/18 08:00 07/30/18 08:00 - Labs Labs: 07/30/18 07:29 07/30/18 07:29 - Constitutional Appears: No Acute Distress - Head Exam Head Exam: ATRAUMATIC, NORMAL INSPECTION - Eye Exam Eye Exam: EOMI, Normal appearance - ENT Exam ENT Exam: Mucous Membranes Moist - Respiratory Exam Respiratory Exam: NORMAL BREATHING PATTERN - Cardiovascular Exam Cardiovascular Exam: REGULAR RHYTHM, +S1, +S2 - Extremities Exam Extremities Exam: Normal Inspection. absent: Pedal Edema - Neurological Exam Neurological Exam: Alert, Awake, Oriented x3 - Psychiatric Exam Psychiatric exam: Normal Affect Assessment and Plan - Assessment and Plan (Free Text) Assessment: History Acute on Chronic Systolic CHF/Severe Aortic Stenosis s/p TAVR - ECHO: reviewed with Dr. Zavala which showed LV contraction about 45% - ECHO done on 11/11/15 shoed EF of 25-30% with mod dilated LA. - proBNP 5100 - Trop negative - Lasix 20mg daily - Losartan 100mg daily - Coreg to 3.125mg bid History of HTN - Continue Amlodipine 10mg daily - Losartan 100mg daily History of Atrial fibrillation - patient is not on any anticoagulation because of the ongoing GI bleed in the past - Decreased Coreg to 3.125mg bid No further cardiac intervention at this time. Case discussed with Dr. Luacs Dukes PGY-2 <Taras Zavala - Last Filed: 07/30/18 23:03> Objective - Vital Signs/Intake and Output Vital Signs (last 24 hours): Temp Pulse Resp BP Pulse Ox 98.8 F 73 20 170/66 H 97 07/30/18 08:00 07/30/18 08:00 07/30/18 08:00 07/30/18 08:00 07/30/18 08:00 - Labs Labs: 07/30/18 07:29 07/30/18 07:29 Assessment and Plan - Assessment and Plan (Free Text) Assessment: Patient seen and evaluated personally by me Patient denies chest pain and dyspnea Wants to go home Monitor BP
--- NOTE | 2018-07-31 10:11 | CARD ---
APPROVED REPORT Date of service: 07/27/2018 EKG Measurement Heart [id number] <Conclusion> Atrial fibrillation with slow ventricular response with occasional ventricular-paced complexes and with premature ventricular Incomplete left bundle branch block ST & T wave abnormality, consider lateral ischemia Abnormal ECG
--- NOTE | 2018-07-31 11:45 | CARD ---
APPROVED REPORT Date of service: 07/30/2018 EXAM: Two-dimensional and M-mode echocardiogram with Doppler and color Doppler. INDICATION Dyspnea Atrial Fibrillation s/p tavr RISK FACTORS Hypertension Hyperlipidemia 2D DIMENSIONS IVSd1.2 (0.7-1.1cm)LVDd5.4 (3.9-5.9cm) PWd1.3 (0.7-1.1cm)LA [id number] (18-58mL) LVDs4.4 (2.5-4.0cm)FS (%) 19.0 % LVEF (%)38.9 (>50%)LVEF (Turner's)42.59 % M-Mode DIMENSIONS Left Atrium (MM)4.77 (2.5-4.0cm)IVSd1.06 (0.7-1.1cm) Aortic Root3.07 (2.2-3.7cm)LVDd5.81 (4.0-5.6cm) Aortic Cusp Exc.1.06 (1.5-2.0cm)PWd1.38 (0.7-1.1cm) FS (%) 16 %LVDs4.86 (2.0-3.8cm) LVEF (%)34 (>50%) Aortic Valve AoV Peak Imprrenu526.3cm/sAoV VTI55.0cmAO Peak GR.28mmHg AO Mean GR.15mmHg Mitral Valve MV E Bycixenj561.0cm/sE/A ratio0.2EQQY034.67 cm/s TDI Lateral E' Peak V8.80cm/sMedial E' Peak V4.93cm/sE/Lateral E'11.6 E/Medial E'20.7 Tricuspid Valve TR Peak Ruremtzw673ks/sTR Peak Gr.66hsXgYFST32zmYd <Conclusion> Left ventricle: thickness: normal; size: normal; overall ejection fraction: 45%: diastolic filling pressures: normal Mitral valve: annulus:MAC: leaflets: normal: excursion: normal; no significant trans-mitral gradient:mild incompetence: left atrium: dilated Aortic valve: S/P TAVR; 28/13mmHg peak/mean trans-aortic gradient: mild incompetence; no paravalvular leak: aortic root: normal Right sided Structures: pacing lead notedPulmonary valve: normal; no significant incompetence; Tricuspid valve: normal; no significant incompetence: Intra-cardiac hemodynamics: pulmonary systolic pressures: normal; central venous pressures: normal No pericardial effusion
== END 2018-07-30 15:58 | disposition home or self-care (01) ==
LOC: C.ER 12:10 → C.6T 15:43
PROVIDERS: ADMIT Internal Medicine; ATTEND Internal Medicine
DX: I13.0 Hypertensive heart and chronic kidney disease with heart failure and stage 1 through stage 4 chronic kidney disease, or unspecified chronic kidney disease (principal); C88.0 Waldenstrom macroglobulinemia; D64.9 Anemia, unspecified; E78.5 Hyperlipidemia, unspecified; I25.10 Atherosclerotic heart disease of native coronary artery without angina pectoris; I35.0 Nonrheumatic aortic (valve) stenosis; I47.2 Ventricular tachycardia; I48.91 Unspecified atrial fibrillation; I48.92 Unspecified atrial flutter; I50.23 Acute on chronic systolic (congestive) heart failure; J44.9 Chronic obstructive pulmonary disease, unspecified; N18.9 Chronic kidney disease, unspecified; Z87.891 Personal history of nicotine dependence; Z92.3 Personal history of irradiation; Z95.0 Presence of cardiac pacemaker; Z95.2 Presence of prosthetic heart valve
CPT/HCPCS: 36415; 71046; 80053; 81001; 83735; 83880; 84100; 84443; 84484; 85025; 85027; 87040; 87804; 93005; 93306; 94640; 96360; 99285; G0378; J2280; J7040

== ENCOUNTER 2018-07-30 20:03 | Emergency (ER) | payer MEDICARE ==
[2018-07-30 20:03] VITALS: PULSE 76
--- NOTE | 2018-07-30 20:07 | C.PDOC ---
History Of Present Illness patient was just discharged from the hospital , around 5pm and went home. called 911 about 30 min vessel captain that the patient has slurred speech and can't move left side. Has hx of afib, waldenstrom , tavr. Patient had refused anticoa gulation in the past. No evidence of trauma. Unknow start time of symptoms. Prior to discharge, pt was aaox3 and with full range of motion, ambulating without difficulty Time Seen by Provider: 07/30/18 20:06 History Per: EMS History/Exam Limitations: no limitations Onset/Duration Of Symptoms: Unknown (but today , probably after 6PM) Severity: Severe Pain Scale Rating Of: 8 Reports Recently: Seen In ED, Treated By A Physician, Hospitalized Recent travel outside of the [place]: No Past Medical History Reviewed: Historical Data, Nursing Documentation, Vital Signs - Medical History PMH: Anemia (waldenstein anemia), Atrial Fibrillation, CAD, Cardia Arrhythmia, CHF, COPD, Gastrointestinal Ulcer, HTN, Hypercholesterolemia, Hyperlipidemia, Malignancy (Larynx and Vocal Cords), Chronic Kidney Disease Surgical History: Endoscopy, Pacemaker - [facility] Procedures ANGIOPLASTY OF OTHER NON-CORONARY VESSEL(S) (02/13/14) CLOSED ENDOSCOPIC BIOPSY OF LARGE INTESTINE (09/08/14) CONTINUOUS INVASIVE MECHANICAL VENTILATION <96 CONSEC HRS (03/06/15) CONTRAST ARTERIOGRAM-LEG (02/13/14) DX ULTRASOUND-HEART (08/24/13) ENDOSC POLYPECTOMY OF LG INTEST (03/03/13) ESOPHAGOGASTRODUODENOSCOPY [EGD] W/CLOSED BIOPSY (09/08/14) EXCISION OF DESCENDING COLON, ENDO, DIAGN (04/05/15) EXCISION OF STOMACH, ENDO, DIAGN (04/05/15) FUSION/REFUS OF 4-8 VERTEBRAE (05/02/13) INFLUENZA VACCINATION (05/26/14) INSEJ [id number] PERIPHERAL NON-CORONARY VES STENT(S) (02/13/14) INSERT ENDOTRACHEAL TUBE (03/06/15) INSERTION OF FOUR OR MORE VASCULAR STENTS (02/13/14) INSERTION OF TOTALLY IMPLANTABLE VASC ACCESS DEVIC (09/29/14) INSPECTION OF UPPER INTESTINAL TRACT, ENDO (04/05/15) OCCUPATIONAL THERAPY (03/13/13) OTH CERVICAL FUSION OF POSTERIOR COLUMN, POSTERIOR TECHNIQUE (05/02/13) OTHER ENDOSCOPY OF SM INTEST (03/03/13) PACKED CELL TRANSFUSION (03/06/15) PHYSICAL THERAPY NEC (03/13/13) PROCEDURE ON SINGLE VESSEL (02/13/14) RADIOTHERAPEUT PROC NEC (03/13/13) SPINAL CANAL EXPLOR NEC (05/02/13) THERAPEUTIC ERYTHROCYTAPHERESIS (08/19/14) TRANSFUSE NONAUT RED BLOOD CELLS IN PERIPH VEIN, PERC (04/05/15) ULTRASONOGRAPHY OF RIGHT AND LEFT HEART, TRANSESOPHAGEAL (11/09/15) VACCINATION NEC (05/26/14) Family History: States: No Known Family Hx - Social History Hx Tobacco Use: No Hx Alcohol Use: No Hx Substance Use: No - Immunization History Hx Tetanus Toxoid Vaccination: No Hx Influenza Vaccination: No Hx Pneumococcal Vaccination: No Review Of Systems Review Of Systems: ROS cannot be obtained secondary to pt's inabilty to answer questions. Physical Exam - Physical Exam Appears: In Acute Distress Skin: Warm, Dry Head: Normacephalic Eye(s): bilateral: Normal Inspection Ear(s): Bilateral: Normal Nose: Normal Oral Mucosa: Dry Neck: Supple Chest: Symmetrical, Other (port right chest, pacer/defib left chest wall) Cardiovascular: Rhythm Regular Respiratory: No Rales, Rhonchi (few), Wheezing (few) Gastrointestinal/Abdominal: Soft, No Tenderness, No Distention Back: Normal Inspection Extremity: No Pedal Edema Extremity: Bilateral: Atraumatic, No Pedal Edema Pulses: Left Dorsalis Pedis: Normal, Right Dorsalis Pedis: Normal Neurological/Psych: Slow To Respond With Command, Other (left facial droop, left arm plegia, decreased left leg ) Other Neurological Findings: Facial Palsy ED Course And Treatment - Laboratory Results Result Diagrams: 07/30/18 20:21 07/30/18 20:21 ECG: Interpreted By Me, Viewed By Me ECG Rhythm: Atrial Fibrillation (78), Nonspecific Changes (occ pvc's) O2 Sat by Pulse Oximetry: 98 Pulse Ox Interpretation: Normal - Radiology CXR: Interpreted by Me, Viewed By Me Progress Note: code stroke called 8:03PM. spoke with Dr. Wilkinson at 8:35PM. 8:40 PM pt's symptoms unchanged. 8:42pm spoke with dr wilkinson - will give tpa as pt with total rmca occlusion. 9pm tpa bolus given. 9:10 pm some slight left leg movement, Left arm still not moving. have spoken with the transfer center [facility]. accepted the pt. 9:11 pm son at bedside. awaare of pt's condition and transfer Critical Care Time - Critical Care Note Total Time (in mins): 82 Documented critical care: time excludes all time spent performing seperately billable procedures. NIHSS Stroke Scale - Date/Time Evaluation Performed Date Performed: 07/30/18 Time Performed: 20:07 When Was NIHSS Performed: Baseline - How Severe is the Stroke Level of Consciousness: 0=Alert LOC to Questions: 0=Both comments correct LOC to commands: 1=Obeys one correctly Best Gaze: 0=Normal Visual: 0=No visual loss Facial: 2=Partial (lower face paralysis) Motor Arm - Left: 3=No effort against gravity (falls immediately) Motor Arm - Right: 0=No drift Motor Leg - Left: 2=Falls before 5 sec Motor Leg - Right: 0=No drift Limb Ataxia: 1=Present Upper or Lower Sensory: 0=Normal Best Language: 1=Mild to moderate aphasia Dysarthia: 1=Mild to moderate slurring Extinction & Inattention (Neglect): 0=Normal, no object Score: 11 rTPA Inclusion/Exclusion - Refusal of Treatment Patient Refused Treatment: No - Inclusion Criteria for Altepase Patient is 18 years or Older: Yes The Clinical Diagnosis of Ischemic Stroke That is Causing a Potentially Disabling Neurological Deficit: Yes Time of Onset is Well Established to be Less Than 270 Minute Before Treatment Would Begin: No Risk/Benefit Discussed With Patient/Family Member Present: Yes - Exclusion Criteria for Altepase Uncontrolled Hypertension at Time of Treatment (Systolic BP above 185 or Diastolic BP above 110 mmHg): No Active Internal Bleeding: No Known Bleeding Diathesis Including but Not Limited to: Platelets Below 100,000/mm,PTT Above 40 sec After Heparin Use, Current Use of Oral Anitcoagulant With INR Greater Than 1.7 or PT Greater Than 15 secs: Yes Evidence of an Intracranial Hemorrhage: No Evidence of Major Acute Infarct With Signs Greater Than 1/3 MCA Territory: No Suspicion of Subarachnoid Hemorrhage on Pretreatment Evaluation Even if CT Head Negative For Hemorrhage: No - Warning to TPA With Conditions Following Conditions Weighed Against Anticipated Benefit: Yes Condition: Age Greater Than 75 years Disposition Counseled Patient/Family Regarding: Studies Performed, Diagnosis - Disposition Disposition: Trans to Other Acute Care Hosp Disposition Time: 20:06 Condition: CRITICAL Forms: [facility] ([employer]ive[employer]) - Clinical Impression Clinical Impression: CVA (cerebral vascular accident)
[2018-07-30 20:08] VITALS: BMI 24.0
[2018-07-30] MEDS ORDERED: Iodixanol 320 MG/ML 100 ML BOTTLE IV ONE (20:14)
[2018-07-30] MEDS ORDERED: Sodium Chloride 0.9% 1,000 ML IV SCH (20:15)
[2018-07-30 20:25] LABS: BASO # 0.1 K/uL (0.0-0.2); EOS # 0.2 K/uL (0.0-0.7); EOS % 2.8 % (0.0-4.0); HEMOGLOBIN 13.3 g/dL (12.0-18.0); LYMPH # 2.9 K/uL (1.0-4.3); LYMPH % 35.9 % (20.0-40.0); MEAN CELL VOLUME 89.8 fL (80.0-94.0); MEAN CORPUSCULAR HGB CONC 32.3 g/dL (33.0-37.0); MEAN PLATELET VOLUME 7.8 fL (7.2-11.7); MONO # 0.9 K/uL (0.0-0.8); MONO % 10.7 % (0.0-10.0); NEUT % 49.6 % (50.0-75.0); RBC 4.59 Mil/uL (4.40-5.90)
[2018-07-30 20:38] LABS: ALB/GLOB RATIO 1.8 (1.0-2.1); ALBUMIN 4.5 g/dL (3.5-5.0)
[2018-07-30 20:51] LABS: TROPONIN I 0.033 ng/mL (0.00-0.120)
[2018-07-30 20:53] LABS: INR 1.1; PROTHROMBIN TIME 11.9 SECONDS (9.7-12.2)
[2018-07-30 21:08] VITALS: O2SAT 98
[2018-07-30 22:04] VITALS: BP 153/104; PULSE 74; RESP 15; TEMP 98.6
--- NOTE | 2018-07-31 08:17 | CT ---
Date of service: 07/30/2018 PROCEDURE: CT HEAD WITHOUT CONTRAST. HISTORY: Code Stroke COMPARISON: None available. TECHNIQUE: Axial computed tomography images were obtained through the head/brain without intravenous contrast. Radiation dose: Total exam DLP = 1000.75 mGy-cm. This CT exam was performed using one or more of the following dose reduction techniques: Automated exposure control, adjustment of the mA and/or kV according to patient size, and/or use of iterative reconstruction technique. FINDINGS: HEMORRHAGE: No intracranial hemorrhage. BRAIN: No mass effect or edema. Scattered focal lucencies in the subcortical and periventricular white matter suggestive for chronic microvascular ischemic change. Diffuse generalized parenchymal atrophy. Punctate hypodensity in the right cerebellum may represent a small lacunar infarct. VENTRICLES: Unremarkable. No hydrocephalus. CALVARIUM: Unremarkable. PARANASAL SINUSES: Prominent mucosal opacification of the right maxillary sinus. Mild mucosal opacification of the left maxillary sinus. Mild mucosal opacification of the sphenoid sinus. Prominent mucosal opacification of the ethmoid air cells. Frontal sinus is preserved. MASTOID AIR CELLS: Unremarkable as visualized. No inflammatory changes. OTHER FINDINGS: Intracranial arterial calcifications. IMPRESSION: Chronic microvascular ischemic change. Diffuse generalized parenchymal atrophy. Punctate hypodensity in the right cerebellum may represent a small lacunar infarct. Sinus mucosal disease. If there is persistent concern for acute ischemic change, consider correlation with MRI. A preliminary report was generated at 8:37 p.m. on 07/30/[address] Taras Rushing from [employer].
--- NOTE | 2018-07-31 14:20 | CT ---
Date of service: 07/30/2018 PROCEDURE: CTA HEAD AND NECK WITH CONTRAST HISTORY: cva, left side marisela COMPARISON: None available. TECHNIQUE: Initial noncontrast head CT was performed. Subsequently, CT angiogram of the head and neck were performed after the intravenous administration of 80 mL of Omnipaque 350. Contiguous 1.5mm thick images were obtained in the axial plane of the neck. 2-D coronal and sagittal MPR images were obtained. Imaging postprocessing was performed with 3-D images also obtained. A delayed contrast head CT was also obtained. This CT exam was performed using one or more of the following dose reduction techniques: Automated exposure control, adjustment of the mA and/or kV according to patient size, and/or use of iterative reconstruction technique. Contrast dose: 100 mL Visipaque 320 Radiation dose: Total exam DLP = 721.20 mGy-cm. FINDINGS: HEAD: Right: There is abrupt cutoff in the right proximal M1 segment with absent flow in the distal M1 segment, M2 segments and distal branches. The intracranial internal carotid artery and anterior cerebral arteries are widely patent. Left: The intracranial internal carotid artery, and anterior and middle cerebral arteries are widely patent. There are coarse atherosclerotic calcifications in the cavernous carotid arteries. Posterior circulation: The visualized intracranial vertebral arteries, basilar artery and posterior cerebral arteries are widely patent. There is no endoluminal filling defect to suggest thrombus. There is no intracranial saccular aneurysm. NECK: There is a three vessel aortic arch. There is no stenosis at the origins of the great vessels at the level of the aortic arch. There are coarse atherosclerotic calcifications in the carotid bulbs and proximal internal carotid arteries. Right Carotid: On the right, the common carotid, internal carotid and external carotid arteries are widely patent. There is no hemodynamically significant stenosis in the internal carotid artery by NASCET criteria. Left Carotid: On the left, the common carotid, internal carotid and external carotid arteries are widely patent. There is no hemodynamically significant stenosis in the internal carotid artery by NASCET criteria. The vertebral arteries are widely patent. The right vertebral artery is hypoplastic, an anatomic variant. There is near complete opacification of the right maxillary sinus and aerosolized secretions with osteoneogenesis, fluid in the left maxillary sinus and polypoid mucosal thickening in the left frontal sinus, ethmoid air cells and right sphenoid chamber. IMPRESSION: 1. Acute occlusion in the right proximal M1 segment with absent flow in the distal M1 segment, M2 segments and distal branches. 2. No evidence of endoluminal thrombus,occlusion or definite significant stenosis in the left intracranial arteries. No evidence of hemodynamically significant stenosis in the internal carotid arteries. 3. Patent bilateral vertebral arteries. 4. Chronic pansinusitis. Complete opacification of the right maxillary sinus with aerosolized secretions and fluid in the left maxillary sinus may represent superimposed acute sinusitis. A preliminary report was provided by [employer].
--- NOTE | 2018-07-31 15:17 | RAD ---
Date of service: 07/30/2018 HISTORY: Code Stroke COMPARISON: 07/27/2018 FINDINGS: LUNGS: Right lung lower limits of normal. No interval consolidation. PLEURA: No significant pleural effusion identified, no pneumothorax apparent. CARDIOVASCULAR: There is presence of aortic atherosclerotic calcification on x-ray. Cardiomegaly-similar probable top-normal pulmonary vascularity.Left-sided single lead AICD pacemaker device in place. Position appears satisfactory. No change appreciated Right sided MediPort in place tip superior vena cava-similar. Prior lateral view depicting a aortic valvular prosthesis difficult to appreciate on this slightly underexposed single frontal semi-erect portable study. OSSEOUS STRUCTURES: Right shoulder arthrosis. VISUALIZED UPPER ABDOMEN: Normal. OTHER FINDINGS: None. IMPRESSION: Technically more limited exam for reasons stated above. Nevertheless no interval pathology appreciated or significant changes compared to the 07/27/2018 study.
--- NOTE | 2018-08-01 14:08 | CARD ---
APPROVED REPORT Date of service: 07/30/2018 EKG Measurement Heart [id number] <Conclusion> Atrial fibrillation with premature ventricular or aberrantly conducted complexes ST & T wave abnormality: Nonspecific Prolonged QT Abnormal ECG
== END 2018-07-30 22:02 | disposition short-term general hospital (02) ==
LOC: C.ER 20:03
DX: I63.9 Cerebral infarction, unspecified (principal)
CPT/HCPCS: 70450; 70496; 70498; 71045; 80053; 80061; 82948; 83036; 84484; 85025; 85610; 85730; 86850; 86900; 93005; 96374; 99285; J2997; J7030; Q9967